=== PATIENT | male | born 1935 | race Caucasian/White ===

== ENCOUNTER 2024-03-24 20:03 | Emergency (ER) | payer OTHER, SELFPAY ==
[2024-03-24 20:03] VITALS: BMI 25.2
[2024-03-24 20:04] VITALS: BP 123/59
[2024-03-24 22:00] VITALS: BP 108/55
--- NOTE | 2024-03-24 23:28 | ED.GENMED ---
History of Present Illness
General
Chief Complaint: Bowel Problem
Source: patient
Exam Limitations: none
Time Seen by Provider: 03/24/24 22:43
History of Present Illness
History of Present Illness:
This is a 88 year old male that comes in with c/o constipation. States that he has not moved his bowels in 2 days. Family states that he had some mucous stool. States that he feels like he has to go and nothing comes out. States that he has no abd
pain of vomiting. Then last night his pain was a 4/10 but he was not distended. States that he tried an enema late yesterday, MOM and nothing was happening. States that he was concerned that he had an obstruction as he has bilateral hernia's. Denies
any fever, chills, chest pain, SOB, abd pain, nausea, vomiting, diarrhea, headache, dizziness, urinary burning.
Past History
Past History
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
stones, Hernia's )
ED Past Surgical History: Cardiac (CABG, PTCA with stent, AICD) and Urological (Lithotripsy, TURP)
Social History
Tobacco: Former smoker
Alcohol: None
Personal:
Living: with family
Employment: Retired
Family History
Family History: Other (Noncontributory)
Review of Systems
Review of Systems
All Other Systems: ROS reviewed and negative except as documented in HPI and ROS
Constitutional: Reports no symptoms; Denies fever or chills
EENT: Reports no symptoms
Respiratory: Reports no symptoms; Denies cough or trouble breathing
Cardiac: Reports no symptoms; Denies chest pain
ABD/GI: Reports constipated; Denies abdominal pain, nausea, vomiting or diarrhea
: Reports no symptoms; Denies dysuria, frequency or urgency
Musculoskeletal: Reports no symptoms
Skin: Reports no symptoms
Neurological: Reports no symptoms; Denies dizzy
Psychiatric: Reports no symptoms
Phy Exam
General Physical Exam
General Presentation: well appearing and no apparent distress
General age: appears stated age
General Skin: warm and dry
General Habitus: elderly
General Mental: alert
ENT Exam
ENT Exam: TM's normal, pharynx normal and neck supple
Eye Exam
Eye Exam: EOMI
Cardiovascular Exam
Cardiovascular Exam: regular rate/rhythm and normal peripheral pulses
Gastrointestinal Exam
Gastrointestinal Exam: non tender, soft, no organomegaly, no pulsatile mass, non distended and other (Hyperactive bowel sounds, Stool brown hem negative )
Musculoskeletal Exam
Musculoskeletal Exam: full ROM and edema (Ankles and lower legs)
Skin Exam
Skin Exam: normal color, warm/dry, no rash and no petechia
Course
Orders/Labs/Results
Orders:
Orders
03/24/24 20:08
Obstruct Series W/PA Chest [CR Obstruct Series W/pa Chest] Urgent
Comment:
Reason For Exam: now bowel movment in 5 days. abd pain.
Vital Signs
Initial and Last Documented VS:
Initial Vital Signs
Temp Pulse Resp BP Pulse Ox
97.7 F 179 18 123/59 96
03/24/24 20:04 03/24/24 20:04 03/24/24 20:04 03/24/24 20:04 03/24/24 20:04
Last Documented Vital Signs
Temp Pulse Resp BP Pulse Ox
97.7 F 75 18 108/55 96
03/24/24 20:04 03/24/24 22:00 03/24/24 22:00 03/24/24 22:00 03/24/24 22:00
MDM/Problems Addressed
Differential Diagnosis Includes:
Constipation
MDM/Problems Addressed:
This is a 88 year old male that comes in with c/o constipation. Patient has taken MOM and an enema last night. While here patient had 2 very large stools. Patient is ready to go home and was dressed upon my arrival. States that the last stool was
dark.
Rectal exam completed as patient is on blood thinners and this was negative for Blood. Will discharge home.
Chronic conditions affecting care:
Constipation
Acute Exacerbation and/or Progression of Chronic Illness:
Constipation
*Pulse Oximetry
Patient hypoxic: no
*EKG
Interpreted by ED Provider?: NA
Rate: EKG- N/A
*Supervisor Electric Motor Testing Interpretation
Rate: Supervisor Electric Motor Testing- N/A
*Critical Care Note
Total Time (30-74mins, 75-104mins- exclusive of procedures): Not Applicable
ED Attending Note
-
Portions of this chart may have been created with voice recognition software.� Occasional wrong word or��sound alike� substitutions may have occurred due to the inherent limitations of voice recognition software.
Discharge Plan
Departure
Patient Disposition: Home (Routine Discharge)
Date of Disposition: 03/24/24
Time of Disposition: 23:28
Patient with high blood pressure during this ER visit?: No
Condition: Good
Covid-19: Not Applicable
Discharge Problem:
Constipation
Instructions: Constipation, Adult (DC)
Prescriptions:
No Action
carvedilol [Coreg] 6.25 mg Tablet
6.25 mg PO BID
isosorbide mononitrate 30 mg Tablet Extended Release 24 Hr
30 mg PO DAILY
clopidogrel [Plavix] 75 mg Tablet
75 mg PO DAILY
isosorbide mononitrate 60 mg Tablet Extended Release 24 Hr
60 mg PO DAILY
famotidine 20 mg Tablet
20 mg PO DAILY
pravastatin 80 mg Tablet
80 mg PO DAILY
nitroglycerin [Nitrostat] 0.4 mg Tablet, Sublingual
0.4 mg SUBLINGUAL Q5M PRN (Reason: chest pain)
furosemide [Lasix] 20 mg Tablet
20 mg PO BID
glipizide 5 mg Tablet
5 mg PO DAILY
dutasteride [Avodart] 0.5 mg Capsule
0.5 mg PO DAILY
fentanyl 12 mcg/hr Patch 72 Hour
1 patch TRANSDERMAL Q72H
Entresto 24-26 mg Tablet
1 tab PO BID
aspirin [Children's Aspirin] 81 mg Tablet,Chewable
81 mg PO DAILY 30 Days Qty: 30 0RF
sotalol [Betapace] 80 mg Tablet
80 mg PO DAILY Qty: 0 0RF
mexiletine 150 mg Capsule
150 mg PO BID Qty: 0 0RF
Referrals:
Walt Chen MD [Family Provider] - Call in 1-3 days for appt
Activity Restrictions/Additional Instructions:
As discussed, your X-ray shows that there is constipation and slow movement of the bowels as there is an Ileus. Please stay on a light diet. Please Follow up with the family doctor and your Gastrointestinal specialist to help with the constipation.
Your stool is negative for blood. You may try Prune juice mixed with apple juice in equal amounts and heat and drink daily. IF YOU HAVE ABDOMINAL PAIN, VOMITING, OR YOU HAVE ANY OTHER CONCERNS PLEASE RETURN TO THE EMERGENCY ROOM.
Interventions
Interventions:
*Risk Screen - Suicide Last Done: 03/24/24 20:04
*General Assessment Last Done: 03/24/24 20:04
*Neglect/Abuse Screening Last Done: 03/24/24 20:04
*ED COVID-19 Vaccine History Last Done: 03/24/24 23:13
Discharge Date and Time
Print Language: IRISH
== END 2024-03-24 23:47 | disposition home or self-care (01) ==
LOC: EMR 20:03
PROVIDERS: EMERGENCY PHYSICIAN Student in an Organized Health Care Education/Training Program; FAMILY PHYSICIAN Internal Medicine
DX: K59.00 Constipation, unspecified (principal); Z87.891 Personal history of nicotine dependence
CPT/HCPCS: 99283; 74022

== ENCOUNTER 2024-10-06 03:45 | Inpatient (IN) | payer OTHER, SELFPAY ==
[2024-10-05 22:47] VITALS: BP 148/70
[2024-10-05 22:51] LABS: Glucose - Point of Care 215 mg/dl (70-99)
[2024-10-05 23:11] VITALS: BP 146/68
[2024-10-05 23:40] LABS: % Basophils 0.7 % (0-2); % Eosinophils 4.8 % (0-6); % Immature Granulocytes 0.5 % (0-0.5); % Monocytes 7.5 % (1.7-9.3); % Neutrophils 77.5 % (42.2-75.2); Absolute Basophils 0.1 10^3/uL (0-0.2); Absolute Eosinophils 0.5 10^3/uL (0-0.7); Absolute Immature Granulocytes 0.1 10^3/uL (0-0.05); Absolute Lymphocytes 0.9 10^3/uL (1.2-3.4); Absolute Monocytes 0.7 10^3/uL (0.1-0.6); Absolute Neutrophils 7.5 10^3/uL (1.4-6.5); Hematocrit 38.9 % (39.0-52.0); Hemoglobin 12.2 g/dL (13.0-18.0); Mean Corp Hgb Conc. 31.4 g/dL (33.0-37.0); Mean Corpuscular Hgb 28.8 pg (27.0-31.0); Mean Platelet Volume 10.5 fL (7.4-10.4); Nucleated Red Blood Cells % 0 % (-); Platelet Count 261 10^3/uL (130-400); Red Blood Cell Count 4.23 10^6/uL (4.70-6.10); Red Cell Dist. Width 14.5 % (11.5-14.5); White Blood Cell Count 9.7 10^3/uL (4.8-10.8)
[2024-10-05 23:46] LABS: APTT 25.4 Sec (23.4-35.0)
--- NOTE | 2024-10-05 23:53 | ED.CVA ---
History of Present Illness
General
Chief Complaint: CVA/TIA Symptoms
Source: patient and family (Son who is at bedside)
Exam Limitations: altered mental status
Time Seen by Provider: 10/05/24 22:47
Nursing documentation reviewed up to this point in time: agreed with
Onset of Stroke Symptoms
Onset of symptoms known: Yes
Date of onset of symptoms: 10/05/24
Time of onset of symptoms: 21:30
History of Present Illness
History of Present Illness:
This is an 88-year-old gentleman who has extensive past medical history including CAD, ME, CHF, AICD, hyperlipidemia, renal insufficiency, [id number] diabetes.
Recently hospitalized at [facility] after suffering an episode of V. tach with AICD discharge September 15. He had similar AICD discharge the end of August. On both of these events patient suffered a brief syncopal event. During hospitalization mid
September he was found to have pneumonia, bacteremia with concern for pacemaker lead infections. 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 According to son, cardiology states there is no further options. PICC line in place and was started on
ceftriaxone to be completed October 30. He has been home for the past week, started physical therapy at home today for the first time.
Son has noted several episodes over the past 3 to 4 days of mild confusion, mild aphasia, difficulty with speech but then seems to resolve. He had 1 episode where he seemed quite confused, generalized weakness, as such, home hospice consult was
arranged and during that visit, patient was bright and alert and back to normal. Family and patient decided to initiate palliative care instead of hospice care. He is DNR status.
Tonight, around 7:30 PM, while seated in a chair patient had another episode of brief unresponsiveness/syncope did not fall out of the chair but upon wakening after several seconds he was noted to have dense left facial droop, left sided weakness.
Symptoms have persisted thus called to 911.
Prehospital stroke alert initiated.
Prehospital Accu-Chek 217.
According to our records patient maintained on low-dose aspirin and Plavix.
According to med list provided from home health nurse, patient only maintained on low-dose aspirin. No other anticoagulants.
Brief exam upon arrival to the ED. Patient is awake but moderately drowsy, dense left facial droop, appears to have at least mild left visual field deficit, moderate left hemiparesis and significantly garbled speech. Patient attempts to answer
questions but speech is unintelligible.
Initial NIH stroke scale of 16.
Past History
Past History
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
stones, Hernia's )
ED Past Surgical History: Cardiac (CABG, PTCA with stent, AICD) and Urological (Lithotripsy, TURP)
Social History
Tobacco: Former smoker
Alcohol: None
Personal:
Living: with family
Employment: Retired
Family History
Family History: Other (Noncontributory)
Phy Exam
Physical Exam
Physical Exam:
GENERAL: 88-year-old gentleman appears somewhat chronically debilitated, he is awake, minimally drowsy, left hemiparesis with dense left facial droop, significantly garbled speech. No respiratory distress.
EYE: pupils equal and reactive. Left visual field deficit. Anicteric
NECK: Supple, nontender, no meningismus, no significant adenopathy.
ENT: posterior pharynx is clear, oral mucosa is moist. No rhinorrhea.
CARDIAC: Regular rate and rhythm. no murmur. AICD palpable left upper chest wall. There is a large soft mobile mass right anterior axilla that appears to be a lipoma in nature.
LUNGS: Clear breath sounds bilaterally, no acute respiratory distress, no wheezes/rales/rhonchi
ABDOMEN: Soft, nondistended, without focal tenderness
NEUROLOGICAL: Awake, mildly drowsy, significant left facial droop, left visual field deficit, moderate left hemiparesis. Significantly garbled/unintelligible speech.
SKIN: Warm and dry, normal color, skin intact. No rash.
MUSCULOSKELETAL: No C/C/E. peripheral pulses are full and equal b/l. PICC line right upper arm, site is clean and dry.
PSYCH: Unobtainable. Patient is cooperative.
Scores
NIH Stroke Score
Level of Consciousness: 0 - Alert
LOC Questions: 2-Neither correct
LOC Commands: 2-Performs neither correctly
Best Horizontal Gaze: 1-Partial gaze palsy
Visual Livingston: 1=Partial hemianopia
Facial Palsy: 3=Complete paralysis
Motor - Right Arm: 0=No drift 10 seconds
Motor - Left Arm: 1=Drift < 10 seconds
Motor - Right Le-No drift 5 seconds
Motor - Left Le-Drift < 5 seconds
Limb Ataxia: 1-Present in one limb
Sensation: 0-Normal
Best Language: 2-Severe aphasia
Dysarthria: 2-Severe slurring
Extinction and Inattention: 0-No abnormality
Total Score:: 16
Course
Orders/Labs/Results
Orders:
Orders
10/05/24 22:52
CT HEAD STROKE ALERT W/o Cont Urgent
Comment:
Reason For Exam: acute left sided weakness
CT HEAD/NECK ANG STROKE ALERT Urgent
Comment:
Reason For Exam: acute L sided wekaness since 7:30 pm
Bedside Glucose- Treatment ONCE
Cardiac Monitoring- Treatment ONCE
10/05/24 22:53
Electrocardiogram (*1) Stat
Reason for Study: Other
Other Reason for Exam: neuro symptoms
EKG- Treatment ONCE
10/05/24 22:54
pacemaker [Interrogate Pacemaker- Treatment] ONCE
10/05/24 23:15
Complete Blood Count/With Diff Urgent
Comprehensive Metabolic Panel Urgent
PTT Urgent
Troponin I Urgent
10/05/24 23:50
Speech Screening from Jeremy Routine
Speech Therapy Eval & Treat Routine
10/06/24 00:03
CT Chest PE Study Urgent
Comment:
Reason For Exam: R lung PE's noted on CTA neck
10/06/24 01:37
Heparin 6,200 units IV NOW STA
Pharmacy Request to Place See Dose Instructions PO NOW STA
Discontinue all Active Warfarin orders?: Yes
Nursing to Place Non Medication Order As Directed
Physician Order: PTT 6 hours after initial start of Heparin infusion
10/06/24 01:45
Heparin INFUSION titrate rate - CONTINUOUS Heparin 43507 Units/250 ml 25,000 units in 250 ml IV PER PROTOCOL
Weight to be used for heparin protocol in kilograms (kg):: 77
Protocol:: DVT/PE
PTT Goal Range to be used:: PTT 73 to 111 seconds
Order type:: Initial
INITIAL Infusion Dose (UNITS/KG/hr) & then follow protocol:: 18 units/kg/hr
Infusion Dose in UNITS/hr & then follow protocol (UNITS/hr):: 1,400
INFUSION RATE in mL/hr & then follow protocol (mL/hr):: 14
For DVT/PE algorithm, re-bolus for low PTT?: Yes
PTT less than or equal to 64 seconds:: Re-bolus 80 units/kg (max 10,000units). Increase by 300 units/hr
(+ 3mL/hr)
PTT 64.1 to 72.9 seconds:: Re-bolus 40 units/kg (max 5,000 units). Increase by 200 units/hr
(+ 2mL/hr)
PTT 73 to 111 seconds:: Target Range. No change in rate.
PTT 111.1 to 130.9 seconds:: Decrease rate by 200 units/hr (- 2 mL/hr)
PTT 131 to 199.9 seconds:: HOLD for 1 hr. Then decrease by 200 units/hr (- 2mL/hr)
PTT greater than or equal to 200 seconds:: HOLD for 2 hrs & Notify Provider. Then decrease by 300 units/hr
(- 3mL/hr)
Lab follow-up:: Each change, PTT q6h until 2 consecutive are therapeutic. Then
PTT daily.
10/06/24 02:[address] See Dose Instructions IV DIRECTED
10/06/24 Breakfast
NPO
Allow oral meds: No
Allow clear liquids: No
Abnormal Lab Results
10/05/24 10/05/24
22:50 23:15
RBC 4.23 L 10^6/uL
(4.70-6.10)
Hgb 12.2 L g/dL
(13.0-18.0)
Hct 38.9 L %
(39.0-52.0)
MCHC 31.4 L g/dL
(33.0-37.0)
MPV 10.5 H fL
(7.4-10.4)
Abs Immat Gran (auto) 0.1 H 10^3/uL
(0-0.05)
Absolute Neuts (auto) 7.5 H 10^3/uL
(1.4-6.5)
Absolute Lymphs (auto) 0.9 L 10^3/uL
(1.2-3.4)
Absolute Monos (auto) 0.7 H 10^3/uL
(0.1-0.6)
Neutrophils % 77.5 H %
(42.2-75.2)
Lymphocytes % 9.0 L %
(20.5-51.1)
BUN 38 H mg/dl
(9-20)
Creatinine 1.4 H mg/dL
(0.7-1.3)
Glucose 216 H mg/dl
(70-99)
Troponin I 0.955 H* ng/ml
POC Glucose 215 H mg/dl
(70-99)
10/05/24 23:15
10/05/24 23:15
Vital Signs
Initial and Last Documented VS:
Initial Vital Signs
Temp Pulse Resp BP Pulse Ox
97.6 F 75 18 148/70 96
10/05/24 22:47 10/05/24 22:47 10/05/24 22:47 10/05/24 22:47 10/05/24 22:47
Last Documented Vital Signs
Temp Pulse Resp BP Pulse Ox
97.6 F 75 19 130/54 95
10/05/24 22:47 10/06/24 00:30 10/06/24 00:30 10/06/24 00:00 10/06/24 00:30
MDM/Problems Addressed
Differential Diagnosis Includes:
Significant concern for acute CVA, right middle cerebral artery/concern for large vessel occlusion.
Concern for cardiac arrhythmia/AICD discharge.
Patient with history of advanced/end-stage CHF, currently being treated for bacteremia, concern for endocarditis/infected pacemaker wires.
Case discussed with neurology at 11 PM. Due to complex past medical history, advanced age�greater than 85 years, onset of symptoms 3-1/2 hours ago�he is at too great a risk for intracranial bleeding with TNK. Neurology does not recommend
thrombolytics and due to all the above as well as current significantly deconditioned state, he is poor candidate for IAT.
This has all been discussed with son, he understands the rationale for holding off on thrombolytics as well as thrombectomy and agrees with these recommendations.
Awaiting CT/CTA head and neck results.
Awaiting lab results.
Will interrogate AICD.
Will plan to admit to hospitalist service.
Chronic conditions affecting care: DM, HTN, CAD, Cardiomyopathy, Arrhythmia, Kidney disease and Other (Bacteremia, currently being treated with IV ceftriaxone to be completed October 30)
*Radiology
Radiology exam reviewed: radiology read reviewed (CT/CTA head and neck shows no acute findings. No evidence of large vessel occlusion. CTA however does note PEs in the right lung)
*Pulse Oximetry
Patient hypoxic: no
*EKG
Interpreted by ED Provider?: Yes
Interpretation: normal
Comparison EKG: no changes (Unchanged from previous June 27, 2023)
Rate: normal
Rhythm: other (Atrial paced ventricular sensed rhythm at 75 bpm with prolonged AV conduction.)
Olin: normal axis
QRS Pattern: poor R-wave progression and left vent hypertrophy
*V Belt Skiver Interpretation
Rate: normal
Interpretation: normal
Rhythm: other (Atrial paced rhythm)
*Critical Care Note
Total Time (30-74mins, 75-104mins- exclusive of procedures): 45
comment:
Critical care statement: A total of 45 minutes of critical care time was provided for this patient. This includes management of unstable vital signs, evaluation of the patient at bedside, reviewing the patient's pertinent medical records, discussion
with consultants, review of old EKGs and review of pertinent medical records. This time with separate from time utilized to perform the aforementioned documented procedures
Update Note
Update Note:
23:30
Upon return from CAT scan. Stroke symptoms have markedly improved.
Continues with left facial droop but left hemiparesis has markedly improved. He continues with very mild drift on the left, mildly weak hand grasp on the left but markedly improved.
He is now able to answer yes and no questions appropriately. Garbled speech has improved.
NIH stroke scale is now 6.
CT of the head/CTA head and neck shows no acute findings, no large vessel occlusion. However there is note of PEs right lung. Patient will need CT of the chest/PE study.
AICD interrogated. There appears to be no recent arrhythmia, no ATP nor AICD discharge with last event September 15.
01:30
CT shows multiple PEs, subsegmental right upper, right middle, right lower lobe as well as small filling defects left lower lobe. No evidence of central PE nor evidence of heart strain.
Case discussed with neurology, risk versus benefit for IV heparin. With multiple PEs recommend initiation of IV heparin. Son aware of potential risk for intracranial bleeding.
Agreeable to initiation of IV heparin.
ED Attending Note
-
Portions of this chart may have been created with voice recognition software.� Occasional wrong word or��sound alike� substitutions may have occurred due to the inherent limitations of voice recognition software.
Discharge Plan
Departure
Patient Disposition: Admit
Date of Disposition: 10/06/24
Time of Disposition: 00:35
Admit to: Telemetry
Admit to doctor: Sneha
Presentation/result/management discussed w/ accepting MD/DO: Hospitalist
Discharge Problem:
acute right hemispheric ischemic stroke, Pulmonary emboli, End stage heart failure
Prescriptions:
No Action
carvedilol [Coreg] 6.25 mg Tablet
6.25 mg PO BID
isosorbide mononitrate 30 mg Tablet Extended Release 24 Hr
30 mg PO DAILY
Rx Instructions:
take with 60mg for total of 90mg
isosorbide mononitrate 60 mg Tablet Extended Release 24 Hr
60 mg PO DAILY
Rx Instructions:
take with 30mg for total of 90mg
famotidine 20 mg Tablet
20 mg PO DAILY
pravastatin 80 mg Tablet
80 mg PO NOON
nitroglycerin [Nitrostat] 0.4 mg Tablet, Sublingual
0.4 mg SUBLINGUAL [id number] PRN (Reason: chest pain)
furosemide [Lasix] 20 mg Tablet
20 mg PO BID
dutasteride [Avodart] 0.5 mg Capsule
0.5 mg PO NOON
fentanyl 12 mcg/hr Patch 72 Hour
1 patch TRANSDERMAL Q72H
Entresto 24-26 mg Tablet
1 tab PO BID
aspirin [Children's Aspirin] 81 mg Tablet,Chewable
81 mg PO DAILY 30 Days Qty: 30 0RF
glipizide 10 mg Tablet
10 mg PO DAILY
sotalol 120 mg Tablet
120 mg PO BID
mexiletine 200 mg Capsule
200 mg PO Q8H
ceftriaxone 10 gram Recon Soln
2 g IM DAILY
mirtazapine 7.5 mg Tablet
7.5 mg PO HS
Referrals:
UNKNOWN - PT DOES,NOT KNOW [Family Provider] -
Interventions
Interventions:
*Risk Screen - Suicide Last Done: 10/05/24 22:47
*General Assessment Last Done: 10/05/24 22:47
*Neglect/Abuse Screening Last Done: 10/05/24 22:47
*ED- Fall Risk Assessment Last Done: 10/05/24 22:47
*ED COVID-19 Vaccine History Last Done: 10/05/24 22:47
ED- Pulmonary Assessment Last Done: 10/05/24 23:30
ED- Neurological Assessment Last Done: 10/05/24 23:32
ED- Cardiac Assessment Last Done: 10/05/24 23:30
ED Swallowing Screen Last Done: 10/05/24 23:08
Discharge Date and Time
Print Language: BENINESE
[2024-10-06] VITALS (11 sets, daily range): BP systolic 114–151; BP diastolic 54–88; BMI 24.1
[2024-10-06] LABS: ALT (SGPT) 20 U/L (0-50); AST (SGOT) 23 U/L (17-59); Albumin 3.5 g/dl (3.5-5.0); Alkaline Phosphatase 82 U/L (38-126); Blood Urea Nitrogen 38 mg/dl (9-20); Calcium 9.4 mg/dl (8.4-10.2); Carbon Dioxide 29 mmol/L (22-30); Chloride 107 mmol/L (98-107); Estimated Creatinine Clearance 40 ml/min; Glucose 216 mg/dl (70-99); Potassium 4.6 mmol/L (3.5-5.1); Sodium 141 mmol/L (135-145); Total Bilirubin 0.4 mg/dl (0.2-1.3); Total Protein 6.5 g/dl (6.3-8.2); eGFR 48.65
[2024-10-06 00:21] LABS: Troponin I 0.955 ng/ml
--- NOTE | 2024-10-06 00:30 | VATNOTE ---
PT ADMITTED TO EC WITH 5FR SL R PICC. DRSG C/D/I. FLUSHES WELL WITH GOOD BR. EXTENSION REMOVED AND CAP CHANGED. WAITING FOR CTA FOR TIP LOCATION.
--- NOTE | 2024-10-06 01:16 | HPS.HSE ---
Family Physician
-
Family Physician: NOT KNOW UNKNOWN - PT DOES
Chief Complaint
-
CVA/TIA symptoms
History of Present Illness
Is an 88-year-old male with extensive past medical history including CHF with severely depressed EF complicated by V. tach/V-fib status post pacemaker AICD placement, CKD, CAD and recent admission for a syncopal event notable for V-fib/V. tach
terminated by pacing and found to have bacteremia with possibility of lead involvement and infection currently on ceftriaxone 2 g daily via her PICC line presents to the emergency department with a syncopal episode at home.
Patient was discharged about 10 days ago from apartment in hospital after prolonged hospital course. Since discharge son who lives with him stated that he has been improving slowly. He is not mobile and uses a wheelchair. He is now able to feed
himself with regular diet. During the hospitalization the patient was evaluated for dysphagia and was found to have tortuous esophagus but no obstruction. However due to the significant decline and end-stage heart failure the patient was
considering hospice but was not started.
He has had prior episodes of syncopal events in the past lasting seconds. This time he was sitting down when he became unresponsive for a few seconds and then recovered. However when he recovered family noted subsequent left-sided facial droop and
left-sided weakness and was brought into the emergency department. He has not had any fevers or chills. He has not had any nausea or vomiting. Patient himself denies having any chest pain. He denies palpitations.
In the emergency department he was afebrile with a temp of nine 7.6, blood pressure was 130/50 with a pulse of 75. ECG shows atrially paced rhythm at a rate of 75. His troponin was 0.9. CBC was unremarkable. Electrolytes and BUN/creatinine were
stable compared to baseline. Glucose was 216. CT of the head was unremarkable for an acute stroke. CT angio of the head shows no large vessel stenosis/obstruction, no dissection and no aneurysm. There is possibility of high mainstem pulmonary
emboli. Full CT angio of the chest is pending.
Patient had interrogation of the pacemaker. Since September 15 there has been no events and no electrical interventions.
Medical History
Past Medical History
Past Medical History: Reports Arrhythmia (V-fib/V. tach), CAD, CHF (End-stage CHF with severely depressed EF status post AICD pacemaker) and HTN
Past Surgical History: Reports Other
Social History
Unable to obtain full social history at this time due to: Acuity
Family History
Family History: Not pertinent
Allergies / Home Medications
Allergies reflects when Allergies were last updated in [facility].
Home Medications with original date entered in [facility]
Allergy/Medication List:
Allergies
Allergy/AdvReac Type Severity Reaction Status Date / Time
amiodarone Allergy Unknown Verified 06/24/23 23:22
Home Medications
carvedilol 6.25 mg tablet (Coreg) 6.25 mg PO BID Heart Failure 06/25/23
dutasteride 0.5 mg capsule (Avodart) 0.5 mg PO NOON Urinary Issue 06/25/23
famotidine 20 mg tablet 20 mg PO DAILY Gastrointestinal Issue 06/25/23
fentanyl 12 mcg/hr transdermal patch 1 patch transdermal Q72H Pain 06/25/23
furosemide 20 mg tablet (Lasix) 20 mg PO BID Fluid Retention/Swelling 06/25/23
isosorbide mononitrate 30 mg tablet,extended release 24 hr 30 mg PO DAILY Heart Disease/Condition 06/25/23
isosorbide mononitrate 60 mg tablet,extended release 24 hr 60 mg PO DAILY Heart Disease/Condition 06/25/23
nitroglycerin 0.4 mg sublingual tablet (Nitrostat) 0.4 mg sublingual [id number] PRN chest pain 06/25/23
pravastatin 80 mg tablet 80 mg PO NOON High Cholesterol 06/25/23
sacubitril 24 mg-valsartan 26 mg tablet (Entresto) 1 tab PO BID Heart Failure 06/25/23
aspirin 81 mg chewable tablet (Children's Aspirin) 81 mg PO DAILY 30 days #30 tabs 06/27/23
ceftriaxone 10 gram solution for injection 2 g IM DAILY 10/05/24
glipizide 10 mg tablet 10 mg PO DAILY 10/05/24
mexiletine 200 mg capsule 200 mg PO Q8H 10/05/24
mirtazapine 7.5 mg tablet 7.5 mg PO HS 10/05/24
sotalol 120 mg tablet 120 mg PO BID 10/05/24
Review of Systems
-
History Source: Family
Constitutional: Reports Fatigue
EENT: Reports No Symptoms
Respiratory: Reports No Symptoms
Cardiac: Reports No Symptoms
Abdomen/GI: Reports No Symptoms
: Reports No Symptoms
Musculoskeletal: Reports No Symptoms
Skin: Reports No Symptoms
Neurological: Reports Weakness (left sided weakness) and Other (syncope)
Endocrine: Reports No Symptoms
Hematologic/Lymphatic: Reports No Symptoms
Psych: Reports No Symptoms
Physical Exam
Vital Signs
Vital Signs
Temp Pulse Resp BP Pulse Ox
97.6 F 75 19 130/54 95
10/05/24 22:47 10/06/24 00:30 10/06/24 00:30 10/06/24 00:00 10/06/24 00:30
Physical Exam
General: Well Developed, No Apparent Distress and Appears Chronically Ill
HEENT: NormoCephalic, Anicteric, Moist mucous membranes, Atraumatic, PERRLA, Nose Appears Normal and Ears Appear Normal
Respiratory: Clear
Cardiac: S1/S2 and Regular Rhythm
Breast: Deferred by me
GI: Soft, Non Tender, Non Distended and Normal Bowel Sounds
Rectal: Deferred by Provider
Genito-urinary: Deferred by me
Musculoskeletal: No Clubbing, No Cyanosis, Edema, Left Lower Extremity (Trace edema) and Edema, Right Lower Extremity (Trace edema)
Skin: Warm
Neuro: AO x 3, No Motor Deficits (Slight weakness of the left upper and lower extremity (4 out of 5) with preference towards the right.), Cranial Nerves Intact, No Sensory Deficits, Slurred Speech, Facial Droop (Left-sided facial droop) and Other
(improving speech and weakness. )
Hematologic/Lymphatic: No Lymphadenopathy
Psych: Calm
Laboratory Results
-
10/05/24 23:15
10/05/24 23:15
Laboratory Results
APTT 25.4 Sec (23.4-35.0) 10/05/24 23:15
Total Bilirubin 0.4 mg/dl (0.2-1.3) 10/05/24 23:15
AST 23 U/L (17-59) 10/05/24 23:15
ALT 20 U/L (0-50) 10/05/24 23:15
Alkaline Phosphatase 82 U/L (38-126) 10/05/24 23:15
Troponin I 0.955 ng/ml H* 10/05/24 23:15
Data Reviewed
-
CT Scan: Report Reviewed by me
Medical Tests (Nuc Med, Echo, EKG etc): Image Personally Visualized and interpreted
Lab Data: Labs Reviewed by me
Old Records: Reviewed
Impression/Plan
-
IMPRESSION:
Dizziness 88-year-old with history of end-stage CHF with severely depressed EF status post AICD, history of V-fib V. tach status post previous syncope with V-fib he was terminated by device firing or pacing with last such episode in September when he
was hospitalized following syncopal episode where was found to have pneumonia with bacteremia at [facility] comes into the emergency department with brief episode of syncope followed by left-sided weakness. No known seizure-like activity. Device
interrogation was negative for any events. Labs notable for elevated troponin of 0.9, ECG with a paced rhythm, CT of the head negative for acute stroke, CT angio negative for large vessel occlusion dissection or thrombus or aneurysm. Stroke
symptoms improving he still has a left facial droop with improvement left-sided weakness. Incidental finding of a pulmonary embolism on the CT angio with full CT PE study pending
PLAN:
Syncope -stroke versus seizure versus arrhythmia versus PE or combination. He is currently alert and oriented and hemodynamically stable with persistent left-sided facial droop and some weakness.
- admit to telemetry
- no acute invents on PPM
- check orthostatics
- monitor for seizure like activity
- echo
- continue mexiletine and sotalol
- consider cardiology consultation
CVA/TIA - TIA possible vs CVA. Symptoms improving. NIHSS = 5. FAcial droop and limb drifts with minor aphasia
- symptoms onset over 3 hours and patient with age and commorbid factors limiting TNK. TNK not recommended
- aspirin prn now
- permissive htn as chf permits
- npo, speech and swallow eval
- neurochecks q 6 for now
- pt eval
- neuro consult
PE - new pe, bilateral, no saddle emboli and no cardiac strain. provoked presumed by resent hospitalization. Heparin Ok per neurology and risk benefit d/w son.
- will start ac with heparin
- normal oxygen on RA and HD stable
Bacteremia - Afebrile normal leuks
- check blood cultures
- has follow up with ID on October 30
-continue ceftriaxone
Elevated Troponin - chronically elevated with severe dilated cardiomyopathy and possible lead infection.
- asa
- heparin for dvt
- trend trop
CHF - no signs of acute exacerbation
- continue entresto and lasix
- continue coreg
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
- npo
- sliding scale insulin low dose q6
DVT PPX - on AC/scds
Code Status - DNR
[2024-10-06] MEDS: HEPARIN 25000 UNITS/250 ML IV (02:39)
[2024-10-06] MEDS: HEPARIN 6200 UNITS IV (02:39)
--- NOTE | 2024-10-06 04:36 | PTCARENOTE ---
received pt from ED via stretcher, pulled over onto bed. patient with slurred speech, difficult to understand at times, however can answer yes/no questions appropriately, very soft spoken. Oriented to floor, call buck within reach
[2024-10-06 06:04] LABS: Glucose - Point of Care 221 mg/dl (70-99)
[2024-10-06 06:09] LABS: Troponin I 0.888 ng/ml
[2024-10-06] MEDS: NOVOLOG FLEXPEN-LOW RESISTANCE 2 UNITS SC (06:12)
[2024-10-06] MEDS: DURAGESIC 12 MCG/HR PATCH 1 PATCH TRANSDERM (07:12)
--- NOTE | 2024-10-06 07:55 | CON.CAR ---
Addendum entered and electronically signed by Logan Diaz MD 10/06/24 09:19:
Patient seen and examined in collaboration with ORNAMENT MAKER HAND; agree with below.
-88-year-old male (known to Dr. 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
mexiletine), hypertension, hyperlipidemia, diabetes, CKD, and nonambulatory status (wheelchair) admitted with left-sided weakness/facial droop likely secondary to an acute CVA and syncope.
-The patient's syncope is likely not-cardiac in etiology as the patient's ICD interrogation did not show any VT as a cause of his syncope.
-The patient was found to have bilateral pulmonary emboli; syncope is most likely secondary to CVA and/or pulmonary embolism.
-Continue heparin drip and management as per primary team.
-Further recommendations for suspected CVA as per Neurology.
-The patient appears to be fairly compensated in terms of his CHF; continue current medication regimen.
-Will discontinue IV Lasix; resume PO Lasix.
-No need to repeat echocardiogram, as we know that this patient has a severely decreased LVEF--repeat echo will not change of address clerk.
-No further cardiac recommendations at this time; Cardiology will remain available on an as-needed basis.
-Patient can follow-up with his primary Air Carrier Inspector as an outpatient.
Original Note:
Consultation
Consultation Request
Date/Time Consultation Requested: 10/06/24 9330
Date/Time Consultation Performed: 10/06/24 [id number]
Requesting Provider: Dr. Hoover
Performing Provider: Angy KINGSTON for Dr. Diaz
Reason for Consultation: complex cardiac history
Medical History
-
Chief Complaint: stroke symptoms
History of Present Illness:
88 y/o male with CAD with hx CABG and stenting, HFrEF, ICM EF 20% in 2023 here, but per ER 10-15% more recently, VT on sotalol, mexiletine (ICD in place), hypertension, dyslipidemia, DM, and CKD is here for evaluation of change in MS- HPI obtained
from chart as patient is a poor historian. Per chart, he has has confusion, aphasia, speech difficulty, then had brief LOC. After his brief LOC, he had left facial droop and weakness. Notably, chart reports he was in [facility] last month after an ICD
shock for VF. He reportedly had PNA and evidence for cardiac device lead infection and is on IV abx. He is seen to have PE's and is now on a heparin drip. Patient is in no distress at the time of my assessment. He is lethargic, but is able to answer
simple yes/no questions. He denies any CP or SOB. He has a left facial droop. He is able to follow simple commands, and OSHEA's. Discussed with nursing, who reports no change in MS currently from overnight. Dr. Mendez from [facility] is his
sales center manager.
Past Medical History
Past Medical History: Arrhythmias, CAD, CHF, HTN, Hypercholesterolemia, NIDDM and Other (as above)
Social History
Living: With Family
Family History
Family History: Reviewed & Not Pertinent
Allergies / Home Medications
Allergy/AdvReac Type Severity Reaction Status Date / Time
amiodarone Allergy Unknown Verified 06/24/23 23:22
�Medication �Instructions �Recorded �Confirmed �Type
carvedilol 6.25 mg tablet (Coreg) 6.25 mg PO BID Heart Failure 06/25/23 10/05/24 History
dutasteride 0.5 mg capsule 0.5 mg PO NOON Urinary Issue 06/25/23 10/05/24 History
(Avodart)
famotidine 20 mg tablet 20 mg PO DAILY Gastrointestinal 06/25/23 10/05/24 History
Issue
fentanyl 12 mcg/hr transdermal 1 patch transdermal Q72H Pain 06/25/23 10/05/24 History
patch
furosemide 20 mg tablet (Lasix) 20 mg PO BID Fluid 06/25/23 10/05/24 History
Retention/Swelling
isosorbide mononitrate 30 mg 30 mg PO DAILY Heart 06/25/23 10/05/24 History
tablet,extended release 24 hr Disease/Condition
isosorbide mononitrate 60 mg 60 mg PO DAILY Heart 06/25/23 10/05/24 History
tablet,extended release 24 hr Disease/Condition
nitroglycerin 0.4 mg sublingual 0.4 mg sublingual [id number] PRN 06/25/23 10/05/24 History
tablet (Nitrostat) chest pain
pravastatin 80 mg tablet 80 mg PO NOON High Cholesterol 06/25/23 10/05/24 History
sacubitril 24 mg-valsartan 26 mg 1 tab PO BID Heart Failure 06/25/23 10/05/24 History
tablet (Entresto)
aspirin 81 mg chewable tablet 81 mg PO DAILY 30 days #30 tabs 06/27/23 10/05/24 Rx
(Children's Aspirin)
ceftriaxone 10 gram solution for 2 g IM DAILY 10/05/24 10/05/24 History
injection
glipizide 10 mg tablet 10 mg PO DAILY 10/05/24 10/05/24 History
mexiletine 200 mg capsule 200 mg PO Q8H 10/05/24 10/05/24 History
mirtazapine 7.5 mg tablet 7.5 mg PO HS 10/05/24 10/05/24 History
sotalol 120 mg tablet 120 mg PO BID 10/05/24 10/05/24 History
Review of Systems
-
History Source: Patient (denies CP or SOB. Answers yes/ no questions.) and Other (chart)
Neurological: Other (left facial droop and left-sided weakness, loss of consciousness, confusion, aphasia )
Physical Exam
Vital Signs
Temp Pulse Resp BP Pulse Ox
98.0 F 75 22 139/74 92
10/06/24 07:09 10/06/24 07:09 10/06/24 07:09 10/06/24 07:09 10/06/24 07:09
Lab Results
10/05/24 23:15
10/05/24 23:15
Troponin I Cancelled 10/06/24 21:58
Physical Exam
General: Well Developed, Well Nourished and No Apparent Distress
HEENT: Normocephalic and Anicteric
Respiratory: Non Labored Respirations
Cardiac: Regular Rhythm
Skin: Warm and Dry
Neuro: Other (lethargic. Able to tell me his name and answer yes/no questions, follow simple commands. OSHEA's- moves left-side after first. Left sided facial droop noted.)
Psych: Calm
Impression / Plan
-
Suspected stroke:
-this diagnosis is threat to bodily function
-patient remains with left-sided facial droop
-management per neurology
PE's:
-this diagnosis is threat to life
-he is on IV heparin, which requires intensive monitoring
Abnormal troponin:
-acute, non-ischemic myocardial injury in setting of PE's
-no CP or SOB
-trending down
ICM EF 20% in 2022 here, but per OP chart 10-15%:
-on Entresto, Coreg
VT/VF:
-BS ICD in place- of note- per chart, there is possible lead infection and he is on IV abx. BS device check shows no event yesterday- last arrhythmic event/treatment was last month (then hospitalized at [facility] per chart)
-on sotalol and mexiletine
-continue to follow with OP sales center manager
HFrEF: chronic
-does not appear volume overloaded to assessment
-on furosemide
CAD with hx CABG and stenting:
-stable without CP
-on ASA, statin, BB
Data:
Echo 06/26/23: EF 20%, global hypokinesis. Stage II diastolic dysfunction. Moderate mitral regurgitation. Mild aortic regurgitation.
Chest CT: Positive for pulmonary embolism. Pulmonary emboli are seen within the distal right main pulmonary artery, and within the subsegmental pulmonary arteries of the right lower lobe, right middle lobe, right upper lobe, and left lower lobe. No
evidence of right heart strain. Hazy groundglass opacity within the right upper lobe, which may represent subsegmental atelectasis, pneumonia, or pulmonary infarction. Small bilateral pleural effusions, right greater than left. Bibasilar airspace
consolidation which may represent subsegmental atelectasis or pneumonia. Severe coronary artery calcification. Changes of prior CABG.
Data Reviewed
-
EKG: Tracing Personally Visualized and interpreted (Apaced, IVCD)
CT Scan: Report Reviewed by me (as noted below)
Medical Tests (Nuc Med, Echo etc): Report Reviewed by me (echo as noted below)
Labs: Labs Reviewed by me
[2024-10-06] MEDS: ROCEPHIN 2000 MG IV (08:13)
[2024-10-06] MEDS: LASIX 20 MG IV (08:13)
[2024-10-06] MEDS: STERILE WATER FOR INJECTION 20 ML IV (08:13)
[2024-10-06 09:04] LABS: PT 16.7 Sec (11.4-14.6)
--- NOTE | 2024-10-06 09:05 | PTOTSP ---
Speech Language Pathology
Pt seen for speech/language evaluations. Severe dysphonia noted. Vocal quality was aphonic with minimal breath support, typically only able to state 1 word at a time. Significant R gaze noted with L neglect. Provided portions of Quick Aphasia
Battery (QAB), but unable to provide whole battery as pt without connected speech. Pt with suspected mod receptive/expressive aphasia with cognitive deficits.
Pt also seen for clinical bedside swallow evaluation. P.O. trials of puree, ice chip, and thin liquid via pipetted straw provided. Prolonged bolus formation with ice and thin liquid with significant L labial leakage. With ice, swallowed initial
portion with no further attempts at swallowing despite max cueing. With tsp of puree, minimal initial oral manipulation noted, but then pt stopped. Buccal/laryngeal massage, verbal cueing, model, and empty spoon with downward lingual pressure
ineffective at eliciting bolus manipulation/swallow. Manually removed from oral cavity by CELLOPHANE WRAPPING EXAMINER.
Recommend:
(1) Strict NPO
(2) Oral care 4x/day with suctioning as needed
(3) Non-oral meds
(4) Not appropriate for Aspiration Risk Hydration Protocol (ARHP)
(5) CELLOPHANE WRAPPING EXAMINER to continue to follow for dysphagia tx and cognitive-linguistic tx
[2024-10-06 09:22] LABS: APTT > 200 Sec (23.4-35.0)
--- NOTE | 2024-10-06 09:36 | CON.NEURO ---
Consultation
Order
Date of Consultation: 10/06/24
Requesting Provider: Dhaval Garcia DO
Reason for Consult: Stroke
Prehospital stroke notification: 22:41 on 10/05/24.
Neurology Consultation Note.
HPI: This is an 88-year-old man who presented to [facility] on 10/05/2024 with an acute left hemiparesis. According to patient's Mr. Kelsey was sitting in the recliner watching Jeopardy when he was noted by his aid to stare and
not answer questions around around 7:30 PM on 10/05/2024. At approximately 7:15-7:20 PM, he was last heard speaking when he asked where Elina(his aide' was. The family contacted patient's daughter who arrived around 8:15 PM, the patient was
observed to have left-sided facial drooping, inability to communicate, and closed eyes. He attempted to speak but was unable to do so coherently. At 9:54 PM, he was unable to write when given pen and paper, which was unusual for him prompted the
family to significant attention.
Mr. Kelsey was recently to discharge from [facility] for he was treated for PNA, bacteremia secondary to AICD lead infection. Since returning home, he had been experiencing confusional episodes. Prior to this acute event, the patient had his
'best day ever' yesterday, demonstrating improved cognition and communication.
At baseline patient requires assistance with transfer and toileting.
According to cardiology note patient's ICD interrogation did not show any VT or other arrhythmias.
ER VS: 148/70, 75, afebrile
EKG:Atrial-paced rhythm with prolonged AV conduction.
PDMP:Clonazepam 0.5 Mg 30 tablets filled in on 09/29/2024, continue 12 mcg 10 patches filled in on 09/07/2024, 08/08/2024, 07/08/2024
Labs: Glucose�216, normal sodium, creatinine�1.4, troponin�0.955, normal WBCs, hemoglobin�12.2.
CT head wo contrast-mild atrophy, severe chronic sinus disease.
CTA head/neck�right M2 stenosis, left vert occlusion versus severe stenosis, right upper lobe pulmonary embolism.
IV TNK was not provided due to timing of symptom onset, suspicion for infectious endocarditis and age. Mechanical thrombectomy� was not considered due to high mRS.
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
PSH: PICC line, AICD, CABG, sinus surgery, bilateral cataract surgery
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
All:NKDA
ROS: Limited due to encephalopathy
General: Well developed. In no acute distress.
Cardio: Regular rate . Extremities are without cyanosis or edema.
Neuro:
Mental Status: Awake, eye-opening apraxia. Follows complex requests. Oriented to name. Impaired attention. Nonfluent.
Cranial Nerves: Orthophoric primary gaze. Both are surgical, minimally reactive. Left facial weakness. Moderate dysarthria
Motor: Left leg plegia, left arm paresis. Right arm and leg�antigravity close symmetrically purposefully
Sensory: Limited exam due to poor attention
Coordination: No tremors, clonic movements
Gait: deferred
Assessment and Plan:
I. 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 Likely etiology�embolic
II. Multifactorial encephalopathy (vascular, toxic)
III. Acute pulmonary embolism
-Continue Telemetry monitoring
-Avoid cerebral hypoperfusion in view of intracranial stenosis
-STAT CT head without bri with any change and timing of the symptom onset of neuroexam, agitation, headache or vomiting
-Aspiration precautions
-NPO
-Dysphagia evaluation
-Continue heparin gtt for PE. Risk of intracranial ICH in view of acute infarct was discussed
-Repeat CT head without contrast in 24 hours from the initial.
-Future management will depend on goals of care
-The case was discussed with patient's spouse, daughter and caregiver. All questions were answered
I personally reviewed all radiology and labs along with past medical records pertinent to current medical problems. Total time spent in patient care is 65 minutes.
Thank you for allowing us to participate in the care of this patient. We will continue to follow. Please do not hesitate to contact us with any questions or concerns.
Subjective/Objective
Subjective Data
Date of Service: October 06, 2024
Objective Data
Vital Signs
Temp Pulse Resp BP Pulse Ox
36.7 C 75 22 139/74 92
10/06/24 07:09 10/06/24 08:13 10/06/24 07:09 10/06/24 08:13 10/06/24 07:09
Lab Results
10/05/24 23:15
10/05/24 23:15
PT 16.7 Sec (11.4-14.6) H 10/06/24 08:46
INR 1.30 10/06/24 08:46
APTT > 200 Sec (23.4-35.0) H* 10/06/24 08:46
Sodium 141 mmol/L (135-145) 10/05/24 23:15
Potassium 4.6 mmol/L (3.5-5.1) 10/05/24 23:15
BUN 38 mg/dl (9-20) H 10/05/24 23:15
Glucose 216 mg/dl (70-99) H 10/05/24 23:15
Calcium 9.4 mg/dl (8.4-10.2) 10/05/24 23:15
Patient Allergies
amiodarone Allergy (Verified 06/24/23 23:22)
Unknown
CVA Assessment
Tenecteplase Contraindications
IAT Contraindications: Baseline mRS greater than or equal to 3 by history and Life expectancy < 1 year
Medications
-
Active Medications
Generic Name Dose Route Start Last Admin
Trade Name Freq PRN Reason Stop Dose Admin
Aspirin 81 mg 10/06/24 08:00 10/06/24 08:16
Aspirin 81 Mg Chewable Tablet PO 11/03/24 07:59 Not Given
DAILY PO
Carvedilol 6.25 mg 10/06/24 08:00 10/06/24 08:15
Carvedilol 6.25 Mg Tablet PO 11/03/24 07:59 Not Given
BID PO
Ceftriaxone Sodium 2,000 mg 10/06/24 08:00 10/06/24 08:13
Ceftriaxone 2,000 Mg/20 Ml Vial IV 2,000 mg
DAILY PO Administration
Famotidine 20 mg 10/06/24 22:00
Famotidine 20 Mg/2 Ml Vial IV 11/03/24 21:59
HS PO
Fentanyl 1 patch 10/06/24 08:00 10/06/24 07:12
Fentanyl 12 Mcg/Hr Patch TRANSDERM 10/20/24 07:59 1 patch
Q72H PO Administration
Finasteride 5 mg 10/06/24 12:00
Finasteride 5 Mg Tablet PO 11/03/24 11:59
NOON PO
Furosemide 20 mg 10/06/24 16:00
Furosemide 20 Mg Tablet PO 11/03/24 15:59
BID AT 0800,1600 PO
Heparin Sodium 6,200 units 10/06/24 01:57
Heparin 80 Units/Kg Iv Rebolus IV 11/03/24 01:56
Q6HPRN PRN
PTT < OR = 64 seconds
Heparin Sodium 3,100 units 10/06/24 01:58
Heparin 40 Units/Kg Iv Rebolus IV 11/03/24 01:57
Q6HPRN PRN
PTT = 64.1 to 72.9 seconds
Heparin Sodium 25,000 units in 250 mls @ 0 mls/hr 10/06/24 02:00 10/06/24 02:39
Heparin 82493 Units/250 Ml IV 250 mls
PER PROTOCOL PO Administration
Protocol
Per Protocol
Insulin Aspart 0 units 10/06/24 06:00 10/06/24 06:12
Insulin Aspart Low Resistance 300 Units/3 Ml Pen.Injctr SC 11/03/24 05:59 2 units
Q6 PO Administration
Protocol
Isosorbide Mononitrate 90 mg 10/06/24 08:00 10/06/24 08:15
Isosorbide Mononitrate 60 Mg Extended Release Tablet PO 11/03/24 07:59 Not Given
DAILY PO
Mexiletine HCl 200 mg 10/06/24 06:00 10/06/24 04:58
Mexiletine 200 Mg Capsule PO 11/03/24 05:59 Not Given
Q8H PO
Miconazole Nitrate 0 applic 10/06/24 07:35
Miconazole Powder Bottle TOPICAL 11/03/24 07:34
PRN PRN
NURSING PROTOCOL
Mirtazapine 7.5 mg 10/06/24 22:00
Mirtazapine 7.5 Mg Regular Release Tablet PO 11/03/24 21:59
HS PO
Patch Removal 0 patch 10/09/24 08:00
Remove Fentanyl Patch REMOVE 10/23/24 07:59
Q72H PO
Pravastatin Sodium 80 mg 10/06/24 12:00
Pravastatin 40 Mg Tablet PO 11/03/24 11:59
NOON PO
Sacubitril/Valsartan 1 tab 10/06/24 08:00 10/06/24 08:15
Sacubitril 24 Mg/Valsartan 26 Mg (Entresto) Tab PO 11/03/24 07:59 Not Given
BID PO
Sodium Chloride 0 flush 10/06/24 05:00
Sodium Chloride 0.9% (Flush) Syringe IV 11/03/24 04:59
PER PROTOCOL PO
Sotalol HCl 120 mg 10/06/24 08:00 10/06/24 08:15
Sotalol 120 Mg Tablet PO 11/03/24 07:59 Not Given
BID PO
Sterile Water 20 ml 10/06/24 08:00 10/06/24 08:13
Sterile Water For Injection 20 Ml Vial IV 11/03/24 07:59 20 ml
Q24H PO Administration
Home Medications
�Medication �Instructions �Recorded
carvedilol 6.25 mg tablet (Coreg) 6.25 mg PO BID Heart Failure 06/25/23
dutasteride 0.5 mg capsule 0.5 mg PO NOON Urinary Issue 06/25/23
(Avodart)
famotidine 20 mg tablet 20 mg PO DAILY Gastrointestinal 06/25/23
Issue
fentanyl 12 mcg/hr transdermal 1 patch transdermal Q72H Pain 06/25/23
patch
furosemide 20 mg tablet (Lasix) 20 mg PO BID Fluid 06/25/23
Retention/Swelling
isosorbide mononitrate 30 mg 30 mg PO DAILY Heart 06/25/23
tablet,extended release 24 hr Disease/Condition
isosorbide mononitrate 60 mg 60 mg PO DAILY Heart 06/25/23
tablet,extended release 24 hr Disease/Condition
nitroglycerin 0.4 mg sublingual 0.4 mg sublingual [id number] PRN 06/25/23
tablet (Nitrostat) chest pain
pravastatin 80 mg tablet 80 mg PO NOON High Cholesterol 06/25/23
sacubitril 24 mg-valsartan 26 mg 1 tab PO BID Heart Failure 06/25/23
tablet (Entresto)
aspirin 81 mg chewable tablet 81 mg PO DAILY 30 days #30 tabs 06/27/23
(Children's Aspirin)
ceftriaxone 10 gram solution for 2 g IM DAILY 10/05/24
injection
glipizide 10 mg tablet 10 mg PO DAILY 10/05/24
mexiletine 200 mg capsule 200 mg PO Q8H 10/05/24
mirtazapine 7.5 mg tablet 7.5 mg PO HS 10/05/24
sotalol 120 mg tablet 120 mg PO BID 10/05/24
Vital Signs and Labs
-
Vital Signs and Labs:
Vital Signs
Temp Pulse Resp BP Pulse Ox
36.2 C 85 24 151/84 85
10/06/24 11:31 10/06/24 11:31 10/06/24 11:31 10/06/24 11:31 10/06/24 11:31
Lab Results
10/05/24 23:15
10/05/24 23:15
PT 16.7 Sec (11.4-14.6) H 10/06/24 08:46
INR 1.30 10/06/24 08:46
APTT > 200 Sec (23.4-35.0) H* 10/06/24 08:46
Sodium 141 mmol/L (135-145) 10/05/24 23:15
Potassium 4.6 mmol/L (3.5-5.1) 10/05/24 23:15
BUN 38 mg/dl (9-20) H 10/05/24 23:15
Glucose 216 mg/dl (70-99) H 10/05/24 23:15
Calcium 9.4 mg/dl (8.4-10.2) 10/05/24 23:15
Medications
-
Medications:
Generic Name Dose Route Start Last Admin
Trade Name Freq PRN Reason Stop Dose Admin
Aspirin 81 mg 10/06/24 08:00 10/06/24 08:16
Aspirin 81 Mg Chewable Tablet PO 11/03/24 07:59 Not Given
DAILY PO
Carvedilol 6.25 mg 10/06/24 08:00 10/06/24 08:15
Carvedilol 6.25 Mg Tablet PO 11/03/24 07:59 Not Given
BID PO
Ceftriaxone Sodium 2,000 mg 10/06/24 08:00 10/06/24 08:13
Ceftriaxone 2,000 Mg/20 Ml Vial IV 2,000 mg
DAILY PO Administration
Famotidine 20 mg 10/06/24 22:00
Famotidine 20 Mg/2 Ml Vial IV 11/03/24 21:59
HS PO
Fentanyl 1 patch 10/06/24 08:00 10/06/24 07:12
Fentanyl 12 Mcg/Hr Patch TRANSDERM 10/20/24 07:59 1 patch
Q72H PO Administration
Finasteride 5 mg 10/06/24 12:00 10/06/24 13:16
Finasteride 5 Mg Tablet PO 11/03/24 11:59 Not Given
NOON PO
Furosemide 20 mg 10/06/24 16:00
Furosemide 20 Mg Tablet PO 11/03/24 15:59
BID AT 0800,1600 PO
Heparin Sodium 6,200 units 10/06/24 01:57
Heparin 80 Units/Kg Iv Rebolus IV 11/03/24 01:56
Q6HPRN PRN
PTT < OR = 64 seconds
Heparin Sodium 3,100 units 10/06/24 01:58
Heparin 40 Units/Kg Iv Rebolus IV 11/03/24 01:57
Q6HPRN PRN
PTT = 64.1 to 72.9 seconds
Heparin Sodium 25,000 units in 250 mls @ 0 mls/hr 10/06/24 02:00 10/06/24 02:39
Heparin 95150 Units/250 Ml IV 250 mls
PER PROTOCOL PO Administration
Protocol
Per Protocol
Insulin Aspart 0 units 10/06/24 06:00 10/06/24 13:21
Insulin Aspart Low Resistance 300 Units/3 Ml Pen.Injctr SC 11/03/24 05:59 1 units
Q6 PO Administration
Protocol
Isosorbide Mononitrate 90 mg 10/06/24 08:00 10/06/24 08:15
Isosorbide Mononitrate 60 Mg Extended Release Tablet PO 11/03/24 07:59 Not Given
DAILY PO
Mexiletine HCl 200 mg 10/06/24 06:00 10/06/24 04:58
Mexiletine 200 Mg Capsule PO 11/03/24 05:59 Not Given
Q8H PO
Miconazole Nitrate 0 applic 10/06/24 07:35
Miconazole Powder Bottle TOPICAL 11/03/24 07:34
PRN PRN
NURSING PROTOCOL
Mirtazapine 7.5 mg 10/06/24 22:00
Mirtazapine 7.5 Mg Regular Release Tablet PO 11/03/24 21:59
HS PO
Patch Removal 0 patch 10/09/24 08:00
Remove Fentanyl Patch REMOVE 10/23/24 07:59
Q72H PO
Pravastatin Sodium 80 mg 10/06/24 12:00 10/06/24 13:16
Pravastatin 40 Mg Tablet PO 11/03/24 11:59 Not Given
NOON PO
Sacubitril/Valsartan 1 tab 10/06/24 08:00 10/06/24 08:15
Sacubitril 24 Mg/Valsartan 26 Mg (Entresto) Tab PO 11/03/24 07:59 Not Given
BID PO
Sodium Chloride 0 flush 10/06/24 05:00
Sodium Chloride 0.9% (Flush) Syringe IV 11/03/24 04:59
PER PROTOCOL PO
Sotalol HCl 120 mg 10/06/24 08:00 10/06/24 08:15
Sotalol 120 Mg Tablet PO 11/03/24 07:59 Not Given
BID PO
Sterile Water 20 ml 10/06/24 08:00 10/06/24 08:13
Sterile Water For Injection 20 Ml Vial IV 11/03/24 07:59 20 ml
Q24H PO Administration
Home Medications
-
Home Medications
carvedilol 6.25 mg tablet (Coreg) 6.25 mg PO BID Heart Failure 06/25/23
dutasteride 0.5 mg capsule (Avodart) 0.5 mg PO NOON Urinary Issue 06/25/23
famotidine 20 mg tablet 20 mg PO DAILY Gastrointestinal Issue 06/25/23
fentanyl 12 mcg/hr transdermal patch 1 patch transdermal Q72H Pain 06/25/23
furosemide 20 mg tablet (Lasix) 20 mg PO BID Fluid Retention/Swelling 06/25/23
isosorbide mononitrate 30 mg tablet,extended release 24 hr 30 mg PO DAILY Heart Disease/Condition 06/25/23
isosorbide mononitrate 60 mg tablet,extended release 24 hr 60 mg PO DAILY Heart Disease/Condition 06/25/23
nitroglycerin 0.4 mg sublingual tablet (Nitrostat) 0.4 mg sublingual [id number] PRN chest pain 06/25/23
pravastatin 80 mg tablet 80 mg PO NOON High Cholesterol 06/25/23
sacubitril 24 mg-valsartan 26 mg tablet (Entresto) 1 tab PO BID Heart Failure 06/25/23
aspirin 81 mg chewable tablet (Children's Aspirin) 81 mg PO DAILY 30 days #30 tabs 06/27/23
ceftriaxone 10 gram solution for injection 2 g IM DAILY 10/05/24
glipizide 10 mg tablet 10 mg PO DAILY 10/05/24
mexiletine 200 mg capsule 200 mg PO Q8H 10/05/24
mirtazapine 7.5 mg tablet 7.5 mg PO HS 10/05/24
sotalol 120 mg tablet 120 mg PO BID 10/05/24
--- NOTE | 2024-10-06 12:54 | W.PN.HOSP.TC ---
Today's Communication/Plan
-
MRI brain
Permissive hypertension
Continue with statin and aspirin
Heparin drip for PE
Goals of care if not improving
Assessment / Plan
Assessment / Plan
#Syncope
-Likely multifactorial with acute stroke and acute bilateral PE
-Low suspicion for cardiac etiology as ICD interrogation without events
-Was started on heparin drip for new pulmonary emboli
-See below for more detail
#Acute CVA
-Presented with right facial droop and UE pronator drift, aphasia with altered mentation
-Suspicion for right MCA distribution; CTH negative, CTA head and neck with mild atherosclerotic disease
-NIHSS score near 5; was not deemed to be a TNK candidate due to multiple comorbidities
-Continued on statin and started on aspirin upon admission
-Order MRI, will need to test for compatibility with ICD
-Continue with relative permissive hypertension, remains on GDMT for HFrEF
-Continue neurochecks/NIHSS
#Acute bilateral PE
-Likely not submassive as no signs of cardiac strain, has remained HD stable and on RA
-CTA thorax PE protocol showed bilateral PE without any evidence of saddle emboli
-Was started on heparin drip upon admission, has remained stable
-Plan to transition to DOAC
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
-Concern for AICD lead infection with recent antibiotic course started at other hospital
-Recently hospitalized at [facility], remains on ceftriaxone 2 g through 10/30/2024
#Elevated troponin
-Likely nonischemic myocardial injury secondary to stroke and new PE
-ECG without ischemic findings, no chest pain reported, troponin downtrended
-Does have significant CAD history with previous CABG and PCI
#HFrEF
#CAD s/p CABG and PCI
-Most recent echocardiogram with LVEF near 10% per daughter
-Likely ischemic cardiomyopathy with CABG and multiple PCI's
-Home regimen includes aspirin, statin, carvedilol, Entresto, isosorbide
-Home diuretic regimen consist of Lasix 20 mg twice daily
-Appears euvolemic on home regimen
#VT s/p AICD
-AICD placed for primary prevention in the context of reduced EF and VT
-Home regimen includes sotalol twice daily as well as beta-debbi
-No signs of VT currently, remains on telemetry
-AICD interrogation unyielding
#HTN
-Home regimen includes GDMT for HFrEF/CAD
-Blood pressure here currently adequate
#Chronic dysphagia
-Noted to have concerns for dysphagia while at [facility]
-Some concerns for esophageal narrowing however imaging there was unyielding
DVT prophylaxis: Heparin drip
Diet: N.p.o. 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
CODE STATUS: DNR
Discussed with neurology
I spoke with daughter about fairly poor prognosis due to his comorbidities, inability to tolerate feeding at this point. She is understanding, we will provide a day to see how the patient progresses but if this is limited or he worsens then goals
of care discussion will be had for consideration of hospice care
Anticipated Discharge: > 48 hours
Subjective/Interval History
-
Date of Service: October 06, 2024
Seen and examined at the bedside. No acute events reported overnight. AFVSS
Was evaluated by speech therapy who recommended strict n.p.o. status for now.
ROS/history limited by patient's altered mental status in the context of stroke
Objective Data
-
Labs:
Laboratory Results
10/06/24 10/06/24
08:46 17:45
PT 16.7 H
INR 1.30
APTT > 200 H* Pending
Vital Signs:
Vital Signs
Temp Pulse Resp BP Pulse Ox
97.1 F 85 24 151/84 85
10/06/24 11:31 10/06/24 11:31 10/06/24 11:31 10/06/24 11:31 10/06/24 11:31
I&O
10/05/24 10/06/24 10/07/24
06:59 06:59 06:59
Intake Total 0 / 0
Balance 0 / 0
Review of Systems
-
History Source: Patient
All other systems: Reviewed and negative
Physical Exam
-
General: Well Developed, No Apparent Distress and Comfortable
HEENT: Normocephalic, Atraumatic and Moist Mucous Membranes
Respiratory: Clear to Auscultation and Non Labored Respirations
Cardiac: Regular Rhythm and S1/S2; Negative Murmur, Rub or Gallop
GI: Soft, Nontender, Nondistended and Normal Bowel Sounds
Musculoskeletal: No Clubbing, No Cyanosis and No Edema
Skin: Warm and Dry; Negative Rash
Neuro: Awake, Slurred Speech, Facial Droop (Left) and Other (LUE weakness with drift); Negative Alert or Oriented
Psych: Calm
Data Reviewed
-
CT Scan: Report Reviewed by me and Discussed with Family
[2024-10-06 13:20] LABS: Glucose - Point of Care 197 mg/dl (70-99)
[2024-10-06] MEDS: NOVOLOG FLEXPEN-LOW RESISTANCE 1 UNITS SC (13:21)
[2024-10-06 13:28] LABS: Troponin I 0.627 ng/ml
[2024-10-06] MEDS: DESENEX/MITRAZOL/ZEASORB 1 APPLIC TOPICAL (14:42)
--- NOTE | 2024-10-06 16:13 | CM ---
Initial assessment completed. Admitted for CVA/TIA symptoms. Patient is a 88-year-old male with extensive past medical history including CHF with severely depressed EF complicated by V. tach/V-fib status post pacemaker AICD placement, CKD, CAD and
recent admission for a syncopal event notable for V-fib/V. Per chart, patient prognosis is poor, if no improvement goals of care discussion to consider hospice.
CM spoke w/ patient's and daughter. Patient resides w/ spouse in a 56[place] [facility] located on 2nd floor- elevator access.
Patient has RW, grab bars, shower chair, transport chair for when out in the community. Patient is currently on 2L O2, does not use at baseline.
Per daughter, patient does not have SNF hx. Patient was prev known to [facility] for PT/OT/VN.
Address, point of contact and insurance verified
PCP: Walt Chen
Pharmacy: [facility]
Plan: CM will cont to follow for d/c planning
[2024-10-06 17:59] LABS: APTT 79.3 Sec (23.4-35.0)
--- NOTE | 2024-10-06 18:44 | PTCARENOTE ---
Patient restless. Vital signs stable. Patient without urination since the am. Bladder scanned for over 800 mls. notified. Order obtained for Larose cath. Larose placed times one attempt without issue. 750 mls of clear dark yellow urine via Larose
placement.
[2024-10-06 18:45] LABS: Glucose - Point of Care 130 mg/dl (70-99)
[2024-10-06] MEDS: NOVOLOG FLEXPEN-LOW RESISTANCE SC (18:48)
[2024-10-06] MEDS: PEPCID 20 MG IV (21:13)
[2024-10-06] MEDS: NSS (PRESERVATIVE FREE) 8 ML IV (21:13)
[2024-10-07] VITALS (8 sets, daily range): BP systolic 93–145; BP diastolic 49–103; BMI 23.9
[2024-10-07 00:02] LABS: Glucose - Point of Care 144 mg/dl (70-99)
[2024-10-07] MEDS: NOVOLOG FLEXPEN-LOW RESISTANCE SC ×3 (00:25→13:01)
[2024-10-07] MEDS: HEPARIN 25000 UNITS/250 ML IV ×2 (00:41→23:58)
[2024-10-07] MEDS: ATIVAN 0.5 MG IV (01:14)
[2024-10-07] MEDS: NSS (PRESERVATIVE FREE) 0.25 ML IV (01:14)
[2024-10-07 01:19] LABS: APTT 79.8 Sec (23.4-35.0)
[2024-10-07 05:45] LABS: Glucose - Point of Care 120 mg/dl (70-99)
[2024-10-07 07:42] LABS: % Basophils 0.8 % (0-2); % Eosinophils 0.4 % (0-6); % Immature Granulocytes 0.6 % (0-0.5); % Lymphocytes 7.6 % (20.5-51.1); % Monocytes 6.5 % (1.7-9.3); % Neutrophils 84.1 % (42.2-75.2); Absolute Basophils 0.1 10^3/uL (0-0.2); Absolute Eosinophils 0.1 10^3/uL (0-0.7); Absolute Immature Granulocytes 0.1 10^3/uL (0-0.05); Absolute Lymphocytes 1.1 10^3/uL (1.2-3.4); Absolute Monocytes 0.9 10^3/uL (0.1-0.6); Absolute Neutrophils 11.8 10^3/uL (1.4-6.5); Hematocrit 38.5 % (39.0-52.0); Hemoglobin 12.3 g/dL (13.0-18.0); Mean Corp Hgb Conc. 31.9 g/dL (33.0-37.0); Mean Corpuscular Hgb 29.1 pg (27.0-31.0); Mean Platelet Volume 10.2 fL (7.4-10.4); Nucleated Red Blood Cells % 0 % (-); Platelet Count 292 10^3/uL (130-400); Red Blood Cell Count 4.23 10^6/uL (4.70-6.10); Red Cell Dist. Width 14.6 % (11.5-14.5); White Blood Cell Count 14.1 10^3/uL (4.8-10.8)
[2024-10-07 08:11] LABS: APTT 90.3 Sec (23.4-35.0)
[2024-10-07 08:21] LABS: Blood Urea Nitrogen 42 mg/dl (9-20); Calcium 9.7 mg/dl (8.4-10.2); Carbon Dioxide 31 mmol/L (22-30); Chloride 108 mmol/L (98-107); Estimated Creatinine Clearance 33 ml/min; Glucose 146 mg/dl (70-99); Potassium 4.4 mmol/L (3.5-5.1); Sodium 144 mmol/L (135-145); eGFR 38.53
--- NOTE | 2024-10-07 09:00 | PTCARENOTE ---
Pt lethargic this am, arousable to name, NIHSS 11 from 9 last night, Dr. Garcia aware, may be due to Ativan that pt received last night? Holding on rechecking CT scan of head at this point, will continue to monitor closely.
--- NOTE | 2024-10-07 10:09 | PN.CDI ---
CDI
- -
CDI:
Physician Documentation Request
Admit Date: 10/06/24 03:45
Dear Doctor Jose,
Please review the following and provide your response in the progress notes.
Clinical Indicators:
- RN skin assessments indicate Stage 1 coccyx pressure injury, POA
Physician documentation of the type and location of wounds is required for compliant documentation. Based on the above clinical findings and your assessment, please provide the following in your progress note:
1. Location of the ulcer/wound, including laterality.
2. Type (etiology) of ulcer/wound:
- Diabetic ulcer
- Arterial (ischemic) ulcer
- Pressure (decubitus) ulcer
- Other
Use of terms such as suspected, likely, concern for, or probable (associated with a specific diagnosis that is being evaluated, monitored, or treated as if it exists) are acceptable and can be coded in the inpatient setting, when documented at the
time of discharge.
Thank you,
José Bahena RN
CDI Specialist
Please use your independent medical judgment in providing your response.
*Source: National Pressure Ulcer Advisory Panel (NPUAP)
[2024-10-07] MEDS: STERILE WATER FOR INJECTION 20 ML IV (11:03)
[2024-10-07] MEDS: FLUSH (NSS) 2 FLUSH IV (11:03)
[2024-10-07] MEDS: ROCEPHIN 2000 MG IV (11:03)
--- NOTE | 2024-10-07 11:07 | CM ---
Chart reviewed for d/c planning and hospital course updates.
CM consulted for hospice eval and treat. CM spoke w/ patient's daughter, Carola Travis, who confirmed hospice to be explored and agreeable for hospice referral. CM placed [facility] hospice referral in [facility] Olga/medical director of hospice of referral.
Plan: Family is exploring hospice. Poss home w/ hospice?
--- NOTE | 2024-10-07 11:25 | HOSPNOTE ---
Referral received. Called and spoke to daughter Carola Travis, she and the patients spouse will be in the hospital today at 1230. They are agreeable to meet with quality liaison at that time. More information to follow. CM and attending aware.
--- NOTE | 2024-10-07 11:42 | W.PN.HOSP.TC ---
Addendum entered and electronically signed by Dhaval Garcia DO 10/07/24 12:30:
CDI: No VINCENT present as patient's creatinine baseline within range of 1.4-1.7. By definition he does not meet criteria for acute kidney injury
Original Note:
Today's Communication/Plan
-
Hospice consult
Continue current management in the interim
Assessment / Plan
Assessment / Plan
#Goals of care
-Spoke with daughter about condition, mentioned consideration for hospice prior to these events
-He has continued to worsen clinically, unable to tolerate feeding, requiring restraints
-Hospice consulted today, plan to meet with family at 1230 to 1 PM in the room
-Continue with full treatment as listed below pending transition to hospice
#Syncope
-Likely multifactorial with acute stroke and acute bilateral PE
-Low suspicion for cardiac etiology as ICD interrogation without events
-Was started on heparin drip for new pulmonary emboli
-See below for more detail
#Acute CVA
-Presented with right facial droop and UE pronator drift, aphasia with altered mentation
-Suspicion for right MCA distribution; CTH negative, CTA head and neck with mild atherosclerotic disease
-NIHSS score near 5; was not deemed to be a TNK candidate due to multiple comorbidities
-Repeat CT head on 10/06 showed signs of right frontal infarction
-Continued on statin and started on aspirin upon admission
-Continue with relative permissive hypertension, remains on GDMT for HFrEF
-Continue neurochecks/NIHSS
#Acute bilateral PE
-Likely not submassive as no signs of cardiac strain, has remained HD stable and on RA
-CTA thorax PE protocol showed bilateral PE without any evidence of saddle emboli
-Was started on heparin drip upon admission, has remained stable
-Plan to transition to DOAC
#Bacteremia, S[employer] P[employer]
-Concern for AICD lead infection with recent antibiotic course started at other hospital
-Recently hospitalized at [facility], remains on ceftriaxone 2 g through 10/30/2024
#Elevated troponin
-Likely nonischemic myocardial injury secondary to stroke and new PE
-ECG without ischemic findings, no chest pain reported, troponin downtrended
-Does have significant CAD history with previous CABG and PCI
#HFrEF
#CAD s/p CABG and PCI
-Most recent echocardiogram with LVEF near 10% per daughter
-Likely ischemic cardiomyopathy with CABG and multiple PCI's
-Home regimen includes aspirin, statin, carvedilol, Entresto, isosorbide
-Home diuretic regimen consist of Lasix 20 mg twice daily
-Appears euvolemic on home regimen
#VT s/p AICD
-AICD placed for primary prevention in the context of reduced EF and VT
-Home regimen includes sotalol twice daily as well as beta-debbi
-No signs of VT currently, remains on telemetry
-AICD interrogation unyielding
#HTN
-Home regimen includes GDMT for HFrEF/CAD
-Blood pressure here currently adequate
#Chronic dysphagia
-Noted to have concerns for dysphagia while at [facility]
-Some concerns for esophageal narrowing however imaging there was unyielding
#Stage 1 coccyx pressure injury, POA
-Continue to monitor with local wound care
DVT prophylaxis: Heparin drip
Diet: N.p.o. pending improved mental status, TECHNOLOGY DEVELOPMENT INTERN following
CODE STATUS: DNR
Discussed with neurology
Anticipated Discharge: 24 - 48 hours
Subjective/Interval History
-
Date of Service: October 07, 2024
Seen and examined at the bedside. Overnight he became agitated and received 1 dose of Ativan, was placed in restraints. AFVSS otherwise this morning
He remains significantly encephalopathic and minimally responsive. CT overnight showed signs of acute to subacute right frontal infarct
Spoke with the daughter this morning about his clinical worsening. Hospice consulted
ROS/history limited by patient's mental state
Objective Data
-
Labs:
Laboratory Results
10/07/24 10/07/24
00:49 07:33
WBC 14.1 H
Hgb 12.3 L
Hct 38.5 L
Plt Count 292
APTT 79.8 H 90.3 H
Sodium 144
Potassium 4.4
Chloride 108 H
Carbon Dioxide 31 H
BUN 42 H
Creatinine 1.7 H
Glucose 146 H
Calcium 9.7
Vital Signs:
Vital Signs
Temp Pulse Resp BP Pulse Ox
98.7 F 77 20 137/65 94
10/07/24 07:50 10/07/24 07:50 10/07/24 07:50 10/07/24 07:50 10/07/24 11:11
I&O
10/06/24 10/07/24 10/08/24
06:59 06:59 06:59
Intake Total 0 / 0 0 / 0
Output Total 975 / 975
Balance 0 / 0 -975 / -975
Review of Systems
-
Unable to obtain full review of systems at this time due to: Acuity
Physical Exam
-
General: Well Developed, Well Nourished and Appears Chronically Ill
HEENT: Normocephalic, Atraumatic and Moist Mucous Membranes
Respiratory: Clear to Auscultation and Non Labored Respirations
Cardiac: Regular Rhythm and S1/S2; Negative Murmur, Rub, JVD or Gallop
GI: Soft, Nontender, Nondistended and Normal Bowel Sounds
Musculoskeletal: No Clubbing, No Cyanosis and No Edema
Skin: Warm and Dry; Negative Rash
Neuro: Other (AAO x 0; flaccid left upper extremity; unable to obtain full exam due to inability to follow commands); Negative AO x 3
Psych: Calm
Data Reviewed
-
CT Scan: Report Reviewed by me, Discussed with Physician (Hospice team) and Discussed with Family
Labs: Labs Reviewed by me and Discussed with Patient
--- NOTE | 2024-10-07 12:10 | PN.CDI ---
CDI
- -
CDI:
Physician Documentation Request
Admit Date: 10/06/24 03:45
Dear Doctor Jose,
Please review the following and provide your response in the progress notes.
Clinical Indicators:
- Patient admit with CVA and b/l PE
- No renal pmh
- Lab values:
Laboratory Tests
10/05/24 10/07/24
23:15 07:33
Creatinine 1.4 H 1.7 H
eGFR 48.65 38.53
Please clarify which of the following accurately represents the patient's renal status:
VINCENT
VINCENT on CKD 3
Other (please specify)
Criteria for VINCENT*
1 Increase in serum creatinine by > or = to 0.3 mg/dL (> or = to 26.5 micromol/L) within 48 hours, OR
2 Increase in serum creatinine to > or = to 1.5 times baseline, which is known or presumed to have occurred within 7 days, OR
3 Urine volume < 0.5 nL/kg/hour for six hours
Stages of Chronic Kidney Disease*
Level Description GFR
G1 Normal or High >90
G2 Mildly decreased 60-89
G3a Mildly to moderately decreased 45-59
G3b Moderately to severely decreased 30-44
G4 Severely decreased 15-29
G5 Kidney failure <15
Use of terms such as suspected, likely, concern for, or probable (associated with a specific diagnosis that is being evaluated, monitored, or treated as if it exists) are acceptable and can be coded in the inpatient setting, when documented at the
time of discharge.
Thank you,
José Bahena RN
CDI Specialist
Please use your independent medical judgment in providing your response.
*Source: Kidney Disease: Improving Global Outcomes (KDIGO) 2012
[2024-10-07 12:15] LABS: Glucose - Point of Care 128 mg/dl (70-99)
--- NOTE | 2024-10-07 12:28 | W.PN.NEURO.1 ---
Today's Communication / Plan
-
.
Subjective/Objective
Subjective Data
Date of Service: October 07, 2024
Neurology Follow up Note
Normotensive, afebrile. Intermittently agitated. 100% on 2 L of oxygen.
Repeat CT head showed subcortical hypodensity within the right JOVANY/MCA territory.
MAR: Lorazepam 0.5 mg given at 1:14.
TTE�no evidence of intracranial shunt
CTA head/neck�right M2 stenosis, left vert occlusion versus severe stenosis, right upper lobe pulmonary embolism.
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
PSH: PICC line, AICD, CABG, sinus surgery, bilateral cataract surgery
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
All:NKDA
ROS: Limited due to encephalopathy
General: Intermittently restless.
Cardio: Regular rate . Extremities are without cyanosis or edema.
Neuro:
Mental Status: Awake, eye-opening apraxia. Follows complex requests. Oriented to name. Impaired attention. Nonfluent.
Cranial Nerves: Orthophoric primary gaze. Both are surgical, minimally reactive. Left facial weakness. Moderate dysarthria
Motor: Left leg plegia, left arm paresis. Right arm and leg�antigravity close symmetrically purposefully
Sensory: Limited exam due to poor attention
Coordination: No tremors, clonic movements
Gait: deferred
Assessment and Plan:
I. 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 Likely etiology�embolic. Clinically stable.
II. Multifactorial encephalopathy (vascular, toxic)
III. Acute pulmonary embolism
-Continue Telemetry monitoring
-Avoid cerebral hypoperfusion in view of intracranial stenosis
-STAT CT head without bri with any change and timing of the symptom onset of neuroexam, agitation, headache or vomiting
-Continue heparin gtt for PE with close monitoring
-Brain MRI if AICD is MRI compatible and if consistent with goals of care
-we will continue to follow
-
I personally reviewed all radiology and labs along with past medical records pertinent to current medical problems. Total time spent in patient care is 35 minutes.
Thank you for allowing us to participate in the care of this patient. Please do not hesitate to contact us with any questions or concerns.
Objective Data
Vital Signs
Temp Pulse Resp BP Pulse Ox
37.1 C 77 20 137/65 94
10/07/24 07:50 10/07/24 07:50 10/07/24 07:50 10/07/24 07:50 10/07/24 11:11
Lab Results
10/07/24 07:33
10/07/24 07:33
PT 16.7 Sec (11.4-14.6) H 10/06/24 08:46
INR 1.30 10/06/24 08:46
APTT 90.3 Sec (23.4-35.0) H 10/07/24 07:33
Sodium 144 mmol/L (135-145) 10/07/24 07:33
Potassium 4.4 mmol/L (3.5-5.1) 10/07/24 07:33
BUN 42 mg/dl (9-20) H 10/07/24 07:33
Glucose 146 mg/dl (70-99) H 10/07/24 07:33
Calcium 9.7 mg/dl (8.4-10.2) 10/07/24 07:33
Patient Allergies
amiodarone Allergy (Verified 06/24/23 23:22)
Unknown
Vital Signs and Labs
-
Vital Signs and Labs:
Vital Signs
Temp Pulse Resp BP Pulse Ox
36.7 C 95 20 123/55 100
10/07/24 11:50 10/07/24 13:18 10/07/24 11:50 10/07/24 13:18 10/07/24 11:50
Lab Results
10/07/24 07:33
10/07/24 07:33
PT 16.7 Sec (11.4-14.6) H 10/06/24 08:46
INR 1.30 10/06/24 08:46
APTT 90.3 Sec (23.4-35.0) H 10/07/24 07:33
Sodium 144 mmol/L (135-145) 10/07/24 07:33
Potassium 4.4 mmol/L (3.5-5.1) 10/07/24 07:33
BUN 42 mg/dl (9-20) H 10/07/24 07:33
Glucose 146 mg/dl (70-99) H 10/07/24 07:33
Calcium 9.7 mg/dl (8.4-10.2) 10/07/24 07:33
Medications
-
Medications:
Generic Name Dose Route Start Last Admin
Trade Name Freq PRN Reason Stop Dose Admin
Aspirin 81 mg 10/06/24 08:00 10/07/24 11:09
Aspirin 81 Mg Chewable Tablet PO 11/03/24 07:59 Not Given
DAILY PO
Carvedilol 6.25 mg 10/06/24 08:00 10/07/24 11:08
Carvedilol 6.25 Mg Tablet PO 11/03/24 07:59 Not Given
BID PO
Ceftriaxone Sodium 2,000 mg 10/06/24 08:00 10/07/24 11:03
Ceftriaxone 2,000 Mg/20 Ml Vial IV 2,000 mg
DAILY PO Administration
Famotidine 20 mg 10/06/24 22:00 10/06/24 21:13
Famotidine 20 Mg/2 Ml Vial IV 11/03/24 21:59 20 mg
HS PO Administration
Fentanyl 1 patch 10/06/24 08:00 10/06/24 07:12
Fentanyl 12 Mcg/Hr Patch TRANSDERM 10/20/24 07:59 1 patch
Q72H PO Administration
Finasteride 5 mg 10/06/24 12:00 10/07/24 13:36
Finasteride 5 Mg Tablet PO 11/03/24 11:59 Not Given
NOON PO
Furosemide 10 mg 10/07/24 08:00
Furosemide 20 Mg (10 Mg/Ml) 2 Ml Vial IV 11/04/24 07:59
BID AT 0800,1600 PO
Haloperidol Lactate 2.5 mg 10/07/24 13:22 10/07/24 13:38
Haloperidol 5 Mg/Ml 1 Ml Vial IM 11/04/24 13:21 2.5 mg
Q4HPRN PRN Administration
agitation
Heparin Sodium 6,200 units 10/06/24 01:57
Heparin 80 Units/Kg Iv Rebolus IV 11/03/24 01:56
Q6HPRN PRN
PTT < OR = 64 seconds
Heparin Sodium 3,100 units 10/06/24 01:58
Heparin 40 Units/Kg Iv Rebolus IV 11/03/24 01:57
Q6HPRN PRN
PTT = 64.1 to 72.9 seconds
Heparin Sodium 25,000 units in 250 mls @ 0 mls/hr 10/07/24 11:15
Heparin 79912 Units/250 Ml IV
PER PROTOCOL PO
Protocol
Per Protocol
Insulin Aspart 0 units 10/06/24 06:00 10/07/24 13:01
Insulin Aspart Low Resistance 300 Units/3 Ml Pen.Injctr SC 11/03/24 05:59 Not Given
Q6 PO
Protocol
Isosorbide Mononitrate 90 mg 10/06/24 08:00 10/07/24 11:09
Isosorbide Mononitrate 60 Mg Extended Release Tablet PO 11/03/24 07:59 Not Given
DAILY PO
Mexiletine HCl 200 mg 10/06/24 06:00 10/07/24 13:36
Mexiletine 200 Mg Capsule PO 11/03/24 05:59 Not Given
Q8H PO
Miconazole Nitrate 0 applic 10/06/24 07:35 10/06/24 14:42
Miconazole Powder Bottle TOPICAL 11/03/24 07:34 1 applic
PRN PRN Administration
NURSING PROTOCOL
Mirtazapine 7.5 mg 10/06/24 22:00 10/06/24 21:14
Mirtazapine 7.5 Mg Regular Release Tablet PO 11/03/24 21:59 Not Given
HS PO
Patch Removal 0 patch 10/09/24 08:00
Remove Fentanyl Patch REMOVE 10/23/24 07:59
Q72H PO
Pravastatin Sodium 80 mg 10/06/24 12:00 10/07/24 13:36
Pravastatin 40 Mg Tablet PO 11/03/24 11:59 Not Given
NOON PO
Sacubitril/Valsartan 1 tab 10/06/24 08:00 10/07/24 11:08
Sacubitril 24 Mg/Valsartan 26 Mg (Entresto) Tab PO 11/03/24 07:59 Not Given
BID PO
Sodium Chloride 0 flush 10/06/24 05:00 10/07/24 11:03
Sodium Chloride 0.9% (Flush) Syringe IV 11/03/24 04:59 2 flush
PER PROTOCOL PO Administration
Sodium Chloride 8 ml 10/06/24 22:00 10/06/24 21:13
Nss 8 Ml Qhs IV 11/03/24 21:59 8 ml
HS PO Administration
Sotalol HCl 120 mg 10/06/24 08:00 10/07/24 11:08
Sotalol 120 Mg Tablet PO 11/03/24 07:59 Not Given
BID PO
Sterile Water 20 ml 10/06/24 08:00 10/07/24 11:03
Sterile Water For Injection 20 Ml Vial IV 11/03/24 07:59 20 ml
Q24H PO Administration
Home Medications
-
Home Medications
carvedilol 6.25 mg tablet (Coreg) 6.25 mg PO BID Heart Failure 06/25/23
dutasteride 0.5 mg capsule (Avodart) 0.5 mg PO NOON Urinary Issue 06/25/23
famotidine 20 mg tablet 20 mg PO DAILY Gastrointestinal Issue 06/25/23
fentanyl 12 mcg/hr transdermal patch 1 patch transdermal Q72H Pain 06/25/23
furosemide 20 mg tablet (Lasix) 20 mg PO BID Fluid Retention/Swelling 06/25/23
isosorbide mononitrate 30 mg tablet,extended release 24 hr 30 mg PO DAILY Heart Disease/Condition 06/25/23
isosorbide mononitrate 60 mg tablet,extended release 24 hr 60 mg PO DAILY Heart Disease/Condition 06/25/23
nitroglycerin 0.4 mg sublingual tablet (Nitrostat) 0.4 mg sublingual [id number] PRN chest pain 06/25/23
pravastatin 80 mg tablet 80 mg PO NOON High Cholesterol 06/25/23
sacubitril 24 mg-valsartan 26 mg tablet (Entresto) 1 tab PO BID Heart Failure 06/25/23
aspirin 81 mg chewable tablet (Children's Aspirin) 81 mg PO DAILY 30 days #30 tabs 06/27/23
ceftriaxone 10 gram solution for injection 2 g IM DAILY 10/05/24
glipizide 10 mg tablet 10 mg PO DAILY 10/05/24
mexiletine 200 mg capsule 200 mg PO Q8H 10/05/24
mirtazapine 7.5 mg tablet 7.5 mg PO HS 10/05/24
sotalol 120 mg tablet 120 mg PO BID 10/05/24
--- NOTE | 2024-10-07 12:30 | PTCARENOTE ---
Pt no longer lethargic, kicking legs OOB, pulling at untied mitts. Repositioned pt, denying any pain or SOB. Discussed with Dr. Garcia, see new order for Haldol PRN, will monitor.
[2024-10-07] MEDS: HALDOL 2.5 MG IM ×2 (13:38→18:27)
--- NOTE | 2024-10-07 13:58 | CM ---
liaison inspection laboratory assistant met w/ family, family agreeable to moving forward w/ hospice care for patient.
Per hospice, plan is for patient to d/c home Thursday, 10/10, hospice will sign on. 12 pm transport time requested.
network coordinator scheduled ambulance transport
[facility] DNR on chart for hospitalist to sign
Transport forms on chart
Plan: Home w/ hospice on Thursday, 10/10. 12 pm ambulance transport
--- NOTE | 2024-10-07 14:27 | W.CAR.ICD ---
ICD Inactivation Request
-
Oracle Database Consultant Notified: [employer]
The above vendor has been contacted to inactivate the patient's Implantable Cardioverter Defibrillator.
--- NOTE | 2024-10-07 15:25 | W.PN.UPDATE ---
Addendum entered and electronically signed by Edvin Murillo MD 10/07/24 15:56:
I personally interrogated the [employer] ICD.
I turned off all VT/VF tachy therapy.
Original Note:
Update Note
Progress Note Update
The patient is transitioning to hospice. Cardiology was contacted by the primary service. It was requested that ICD therapy be discontinued.
Ventricular therapy turned off at the bedside.
ICD-10 Code: Z45.02
--- NOTE | 2024-10-07 16:10 | PTCARENOTE ---
Dr. Garcia provided orders to cancel neurological checks and NIHSS since pt will be signing onto hospice.
[2024-10-07 18:11] LABS: Glucose - Point of Care 181 mg/dl (70-99)
[2024-10-07] MEDS: NOVOLOG FLEXPEN-LOW RESISTANCE 1 UNITS SC (18:26)
--- NOTE | 2024-10-07 18:53 | PTCARENOTE ---
[facility] cancelled for am due to pt on IM Haldol and not IV Haldol.
[2024-10-07] MEDS: PEPCID 20 MG IV (21:39)
[2024-10-07] MEDS: NSS (PRESERVATIVE FREE) 8 ML IV (21:39)
[2024-10-08 00:03] LABS: Glucose - Point of Care 168 mg/dl (70-99)
[2024-10-08] MEDS: NOVOLOG FLEXPEN-LOW RESISTANCE 1 UNITS SC ×2 (00:10→05:32)
[2024-10-08 03:39] VITALS: BP 130/58
[2024-10-08 05:03] LABS: Glucose - Point of Care 152 mg/dl (70-99)
[2024-10-08 06:00] VITALS: BMI 23.9
[2024-10-08 06:08] LABS: Hematocrit 36.5 % (39.0-52.0); Hemoglobin 11.6 g/dL (13.0-18.0); Mean Corp Hgb Conc. 31.8 g/dL (33.0-37.0); Mean Corpuscular Hgb 29.1 pg (27.0-31.0); Mean Corpuscular Volume 91.5 fL (80.0-94.0); Mean Platelet Volume 10.3 fL (7.4-10.4); Platelet Count 264 10^3/uL (130-400); Red Blood Cell Count 3.99 10^6/uL (4.70-6.10); Red Cell Dist. Width 14.6 % (11.5-14.5); White Blood Cell Count 10.9 10^3/uL (4.8-10.8)
[2024-10-08 06:14] LABS: APTT 75.6 Sec (23.4-35.0)
[2024-10-08 07:05] VITALS: BP 133/62
[2024-10-08] MEDS: STERILE WATER FOR INJECTION 20 ML IV (09:13)
[2024-10-08] MEDS: ROCEPHIN 2000 MG IV (09:13)
[2024-10-08 11:29] VITALS: BP 148/80
--- NOTE | 2024-10-08 12:35 | W.PN.HOSP.TC ---
Today's Communication/Plan
-
Discontinue medications and start comfort regimen
Downgrade to MedSurg
Home hospice Thursday
Assessment / Plan
Assessment / Plan
#Goals of care
-Spoke with daughter about condition, mentioned consideration for hospice prior to these events
-He has continued to worsen clinically, unable to tolerate feeding, requiring restraints
-Hospice consulted today, plan to meet with family at 1230 to 1 PM in the room
-Continue with full treatment as listed below pending transition to hospice
-Will discontinue treatment based medications and transition to comfort regimen today
-Will downgrade to MedSur for hospice pending discharge Thursday
#Syncope
-Likely multifactorial with acute stroke and acute bilateral PE
-Low suspicion for cardiac etiology as ICD interrogation without events
-Was started on heparin drip for new pulmonary emboli
-See below for more detail
#Acute CVA
-Presented with right facial droop and UE pronator drift, aphasia with altered mentation
-Suspicion for right MCA distribution; CTH negative, CTA head and neck with mild atherosclerotic disease
-NIHSS score near 5; was not deemed to be a TNK candidate due to multiple comorbidities
-Repeat CT head on 10/06 showed signs of right frontal infarction
-Continued on statin and started on aspirin upon admission
-Continue with relative permissive hypertension, remains on GDMT for HFrEF
-Continue neurochecks/NIHSS
#Acute bilateral PE
-Likely not submassive as no signs of cardiac strain, has remained HD stable and on RA
-CTA thorax PE protocol showed bilateral PE without any evidence of saddle emboli
-Was started on heparin drip upon admission, has remained stable
-Plan to transition to DOAC
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
-Concern for AICD lead infection with recent antibiotic course started at other hospital
-Recently hospitalized at [facility], remains on ceftriaxone 2 g through 10/30/2024
#Elevated troponin
-Likely nonischemic myocardial injury secondary to stroke and new PE
-ECG without ischemic findings, no chest pain reported, troponin downtrended
-Does have significant CAD history with previous CABG and PCI
#HFrEF
#CAD s/p CABG and PCI
-Most recent echocardiogram with LVEF near 10% per daughter
-Likely ischemic cardiomyopathy with CABG and multiple PCI's
-Home regimen includes aspirin, statin, carvedilol, Entresto, isosorbide
-Home diuretic regimen consist of Lasix 20 mg twice daily
-Appears euvolemic on home regimen
#VT s/p AICD
-AICD placed for primary prevention in the context of reduced EF and VT
-Home regimen includes sotalol twice daily as well as beta-debbi
-No signs of VT currently, remains on telemetry
-AICD interrogation unyielding
#HTN
-Home regimen includes GDMT for HFrEF/CAD
-Blood pressure here currently adequate
#Chronic dysphagia
-Noted to have concerns for dysphagia while at [facility]
-Some concerns for esophageal narrowing however imaging there was unyielding
#Stage 1 coccyx pressure injury, POA
-Continue to monitor with local wound care
DVT prophylaxis: Heparin drip to be DC'd today; no indication on comfort
Diet: N.p.o.
CODE STATUS: DNR
Anticipated Discharge: 24 - 48 hours
Subjective/Interval History
-
Date of Service: October 08, 2024
Seen and examined at the bedside. No acute events overnight. AFVSS this morning
Transitioning to hospice, minimally responsive at the bedside
No signs of acute distress
Objective Data
-
Labs:
Laboratory Results
10/08/24
05:53
WBC 10.9 H
Hgb 11.6 L
Hct 36.5 L
Plt Count 264
APTT 75.6 H
Vital Signs:
Vital Signs
Temp Pulse Resp BP Pulse Ox
99.1 F 77 20 133/62 92
10/08/24 07:05 10/08/24 07:05 10/08/24 07:05 10/08/24 07:05 10/08/24 07:05
I&O
10/07/24 10/08/24 10/09/24
06:59 06:59 07:59
Intake Total 0 / 0 264 / 264
Output Total 975 / 975 200 / 200
Balance -975 / -975 64 / 64
Review of Systems
-
Unable to obtain full review of systems at this time due to: Acuity
Physical Exam
-
General: Well Developed, Comfortable and Other (Frail-appearing)
HEENT: Normocephalic, Atraumatic and Moist Mucous Membranes
Respiratory: Clear to Auscultation and Non Labored Respirations
Cardiac: Regular Rhythm and S1/S2
GI: Soft, Nontender and Nondistended
Musculoskeletal: No Clubbing, No Cyanosis and No Edema
Skin: Warm and Dry; Negative Rash
Neuro: Other (AAO x 0, minimally responsive)
[2024-10-08 12:38] LABS: Glucose - Point of Care 179 mg/dl (70-99)
[2024-10-08] MEDS: NSS (PRESERVATIVE FREE) IV (13:21)
[2024-10-08] MEDS: NOVOLOG FLEXPEN-LOW RESISTANCE SC (13:21)
[2024-10-08 15:16] VITALS: BP 121/57
[2024-10-08 19:09] LABS: Glucose - Point of Care 154 mg/dl (70-99)
[2024-10-08] MEDS: MORPHINE SULFATE 1 MG IV (20:40)
[2024-10-08 23:13] VITALS: BP 127/58
[2024-10-09 07:32] VITALS: BP 144/56
[2024-10-09] MEDS: MORPHINE SULFATE 1 MG IV (08:02)
[2024-10-09] MEDS: DURAGESIC 12 MCG/HR PATCH 1 PATCH TRANSDERM (08:02)
--- NOTE | 2024-10-09 11:33 | W.PN.HOSP.TC ---
Today's Communication/Plan
-
Comfort measures
Home hospice tomorrow
Assessment / Plan
Assessment / Plan
#Goals of care
-Spoke with daughter about condition, mentioned consideration for hospice prior to these events
-He has continued to worsen clinically, unable to tolerate feeding, requiring restraints
-Hospice consulted today, plan to meet with family at 1230 to 1 PM in the room
-Continue with full treatment as listed below pending transition to hospice
-Will discontinue treatment based medications and transition to comfort regimen today
-Will downgrade to [facility] for hospice pending discharge Thursday
#Syncope
-Likely multifactorial with acute stroke and acute bilateral PE
-Low suspicion for cardiac etiology as ICD interrogation without events
-Was started on heparin drip for new pulmonary emboli
-See below for more detail
#Acute CVA
-Presented with right facial droop and UE pronator drift, aphasia with altered mentation
-Suspicion for right MCA distribution; CTH negative, CTA head and neck with mild atherosclerotic disease
-NIHSS score near 5; was not deemed to be a TNK candidate due to multiple comorbidities
-Repeat CT head on 10/06 showed signs of right frontal infarction
-Continued on statin and started on aspirin upon admission
-Continue with relative permissive hypertension, remains on GDMT for HFrEF
-Continue neurochecks/NIHSS
#Acute bilateral PE
-Likely not submassive as no signs of cardiac strain, has remained HD stable and on RA
-CTA thorax PE protocol showed bilateral PE without any evidence of saddle emboli
-Was started on heparin drip upon admission, has remained stable
-Plan to transition to DOAC
#Bacteremia, [employer]
-Concern for AICD lead infection with recent antibiotic course started at other hospital
-Recently hospitalized at [place], remains on ceftriaxone 2 g through 10/30/2024
#Elevated troponin
-Likely nonischemic myocardial injury secondary to stroke and new PE
-ECG without ischemic findings, no chest pain reported, troponin downtrended
-Does have significant CAD history with previous CABG and PCI
#HFrEF
#CAD s/p CABG and PCI
-Most recent echocardiogram with LVEF near 10% per daughter
-Likely ischemic cardiomyopathy with CABG and multiple PCI's
-Home regimen includes aspirin, statin, carvedilol, Entresto, isosorbide
-Home diuretic regimen consist of Lasix 20 mg twice daily
-Appears euvolemic on home regimen
#VT s/p AICD
-AICD placed for primary prevention in the context of reduced EF and VT
-Home regimen includes sotalol twice daily as well as beta-debbi
-No signs of VT currently, remains on telemetry
-AICD interrogation unyielding
#HTN
-Home regimen includes GDMT for HFrEF/CAD
-Blood pressure here currently adequate
#Chronic dysphagia
-Noted to have concerns for dysphagia while at [facility]
-Some concerns for esophageal narrowing however imaging there was unyielding
#Stage 1 coccyx pressure injury, POA
-Continue to monitor with local wound care
DVT prophylaxis: Heparin drip to be DC'd today; no indication on comfort
Diet: N.p.o.
CODE STATUS: DNR
Disposition: Discharge to home hospice on 10/10
Anticipated Discharge: Within 24 hours
Subjective/Interval History
-
Date of Service: October 09, 2024
Seen and examined at the bedside. No acute events overnight. AFVSS
Patient appears comfortable
Plan for home hospice tomorrow
Objective Data
-
Vital Signs:
Vital Signs
Temp Pulse Resp BP Pulse Ox
97.7 F 76 20 144/56 94
10/09/24 07:32 10/09/24 07:32 10/09/24 07:32 10/09/24 07:32 10/09/24 08:00
I&O
10/08/24 10/09/24 10/10/24
05:59 06:59 06:59
Intake Total
Output Total 275 / 275
Balance -275 / -275
Review of Systems
-
History Source: Patient
All other systems: Reviewed and negative
Physical Exam
-
General: Well Developed, No Apparent Distress, Appears Chronically Ill and Cachectic
HEENT: Normocephalic, Atraumatic and Moist Mucous Membranes
Respiratory: Clear to Auscultation and Non Labored Respirations
Cardiac: Regular Rhythm and S1/S2
GI: Soft, Nontender and Nondistended
Musculoskeletal: No Clubbing, No Cyanosis and No Edema
Skin: Warm and Dry; Negative Rash
Neuro: Sedated and Other (Minimally responsive)
--- NOTE | 2024-10-09 14:25 | CHAP ---
Called by staff for Mr. Kelsey, for whom 'Last Rites' were requested. I spoke with family by phone - they confirmed that Isaiah is [employer]. I then visited Mr. Kelsey, non-responsive, with daughter, Rosa, present. We offered prayers together.
Emotional and spiritual support provided. I then contacted [facility], and Fr. Mike came to provide Sacrament of the Sick.
[2024-10-09 15:12] VITALS: BP 137/65
[2024-10-09] MEDS: NSS (PRESERVATIVE FREE) IV (21:21)
[2024-10-09 23:47] VITALS: BP 136/58
--- NOTE | 2024-10-10 01:17 | W.PN.DEATH ---
Pronouncement of
-
Called to see patient to pronounce.
No spontaneous heart tones or respirations noted.
Patient not responsive to verbal stimuli.
Patient is pronounced .
Time of : 01:05
Date of : 10/10/24
Cause of : acute R MCA stroke, bilateral pulmonary embolism
Family Notified: Yes (daughter notified. )
--- NOTE | 2024-10-10 03:13 | PTCARENOTE ---
Pt peacefully at 0050. G[employer] called to confirm the pt's . [facility] called. They came to say the final goodbye. Gift of life donor program called at [phone]. Information given to Favian Chamorro. Pt does not meet the criteria for any
donation because of age. Pt transferred to the [facility].
== END 2024-10-10 01:05 | disposition expired | DRG 64 ==
LOC: 4 EAST ACU 03:45
PROVIDERS: ADMITTING PHYSICIAN Internal Medicine; ATTENDING PHYSICIAN Internal Medicine; EMERGENCY PHYSICIAN Emergency Medicine; OTHER PHYSICIAN Internal Medicine; OTHER PHYSICIAN Psychiatry & Neurology Neurology
DX: I63.511 Cerebral infarction due to unspecified occlusion or stenosis of right middle cerebral artery (principal); I26.99 Other pulmonary embolism without acute cor pulmonale; G93.49 Other encephalopathy; I13.0 Hypertensive heart and chronic kidney disease with heart failure and stage 1 through stage 4 chronic kidney disease, or unspecified chronic kidney disease; I50.22 Chronic systolic (congestive) heart failure; N17.9 Acute kidney failure, unspecified; R78.81 Bacteremia; I47.20 Ventricular tachycardia, unspecified; I5A Non-ischemic myocardial injury (non-traumatic); G81.94 Hemiplegia, unspecified affecting left nondominant side; R29.810 Facial weakness; R47.01 Aphasia; Z51.5 Encounter for palliative care; N18.9 Chronic kidney disease, unspecified; E11.22 Type 2 diabetes mellitus with diabetic chronic kidney disease; Y83.1 Surgical operation with implant of artificial internal device as the cause of abnormal reaction of the patient, or of later complication, without mention of misadventure at the time of the procedure; T82.7XXD Infection and inflammatory reaction due to other cardiac and vascular devices, implants and grafts, subsequent encounter; I25.10 Atherosclerotic heart disease of native coronary artery without angina pectoris; Z95.1 Presence of aortocoronary bypass graft; Z95.810 Presence of automatic (implantable) cardiac defibrillator; L89.151 Pressure ulcer of sacral region, stage 1; Z66 Do not resuscitate; I49.01 Ventricular fibrillation; I50.84 End stage heart failure; E78.00 Pure hypercholesterolemia, unspecified; Z79.891 Long term (current) use of opiate analgesic; Z79.82 Long term (current) use of aspirin; R29.716 NIHSS score 16; Z79.84 Long term (current) use of oral hypoglycemic drugs; Z79.899 Other long term (current) drug therapy; Z87.891 Personal history of nicotine dependence; H53.40 Unspecified visual field defects; M51.9 Unspecified thoracic, thoracolumbar and lumbosacral intervertebral disc disorder; M54.30 Sciatica, unspecified side; Z95.5 Presence of coronary angioplasty implant and graft
CPT/HCPCS: 70450; 70496; 70498; 71275; 80048; 80053; 82962; 84484; 85025; 85027; 85610; 85730; 87040; 92523; 92526; 92610; 93005; 93289; 93306; 96365; 99291; Q9967